=== PATIENT | male | born 1950 | race Caucasian/White ===

== ENCOUNTER 2016-10-24 18:49 | Inpatient (IN) | payer MEDICARE, OTHER ==
[~2016-10-24] VITALS: Ht 167.6 cm; Wt 57.4 kg
[~2016-10-24 18:49] MED LIST: FENT1PAT8 TD; HYDR-3812 PO; IBUP-1780 PO; LISI-556 PO; ONDANSETRON 4 MG/2 ML (SDV) Z0FRAN ONE; TIZA4TAB3 PO
--- NOTE | 2016-10-24 19:04 | ED Fall/Injury ---
General Chief Complaint: Trauma-Non Activation Stated Complaint: FALL/LEG INJ Source: patient, EMS Exam Limitations: no limitations History of Present Illness Time seen by provider: 18:59 Initial Comments patient presents to ER by EMS with a chief complaint of fall while at home. This is gone of his chair to go get a glass of tomato juice and just passed out and his right leg buckled underneath him when he fell he says afterwards he felt a snap in his right lopez where he has had 2 fractures in the past.he is certain that it is broken. He says he has no feeling in his right leg ever since he had a surgery for the fracture that took the nerve so having passed the midshin is numb. He says he did strike his head is not having any pain anywhere right now. He says he's been losing weight recently and he also has not eating very well. He does drink a lot of beer. 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 He says he's had pass out falls before and attributes them to his aneurysm and maybe his alcohol. He is having no chest pain palpitations or history of coronary disease. He does not have any history of seizures. He did not lose continence of bowel or bladder nor bite his tongue. He is not on any blood thinners. He say he is supposed to be on lisinopril but he hasn't taken a few months because his blood pressure has been okay. Allergies and Home Medications Allergies Coded Allergies: No Known Drug Allergies (Unverified , 07/24/15) Home Medications Fentanyl 1 Each Patch.td72, 25 MCG TD Q72H, #10 Prescribed by: KEENAN WILSON on 08/14/15 1141 Hydrocodone/Acetaminophen 1 Each Tablet, 1 TAB PO Q6H PRN for pain, #60 Prescribed by: KEENAN WILSON on 08/14/15 1141 Ibuprofen 800 Mg Tablet, 800 MG PO Q6H PRN for PAIN, #60 Prescribed by: KEENAN WILSON on 08/14/15 1141 Lisinopril 5 Mg Tablet, 5 MG PO DAILY, #30 Prescribed by: KEENAN WILSON on 08/14/15 1141 Tizanidine HCl 4 Mg Tablet, 4 MG PO TID PRN for SPASMS, #30 Prescribed by: KEENAN WILSON on 08/14/15 1141 Constitutional: No chills, No diaphoresis, No weakness, weight loss Eyes: Denies Blindness, Denies Blurred Vision, Denies Drainage Ears, Nose, Mouth, Throat: denies ear pain, denies ear discharge Respiratory: No cough, No dyspnea on exertion, No short of breath, No wheezing Cardiovascular: No chest pain, No palpitations, syncope Gastrointestinal: No abdominal pain, No constipation, No diarrhea, No nausea, No vomiting Genitourinary: No discharge, No dysuria Musculoskeletal: see HPI, No back pain, No joint pain Skin: No pruritus, No rash, other (ecchymosis and abrasion on his lopez and) Past Ubbsfji-Drhiqr-Yflxxt Hx Patient Social History Alcohol Use: Regular Use Recreational Drug Use: No Smoking Status: Never a Smoker Immunizations Up To Date Date of Pneumonia Vaccine: Sep 22, 2014 Surgeries HX Surgeries: Yes Respiratory Hx Respiratory Disorders: No Cardiovascular Hx Cardiac Disorders: No Cardiac Disorders: Hypertension Neurological Hx Neurological Disorders: Yes Reproductive System Hx Reproductive Disorders: No Sexually Transmitted Disease: No Genitourinary Hx Genitourinary Disorders: No Gastrointestinal Hx Gastrointestinal Disorders: No Musculoskeletal Hx Musculoskeletal Disorders: Yes Musculoskeletal Disorders: Back Injury, Fractures, Spasms Endocrine Hx Endocrine Disorders: No HEENT HX ENT Disorders: Yes HEENT Disorders: Cataract Loss of Vision: Denies Hearing Impairment: Denies Cancer Hx Cancer: No Psychosocial Hx Psychiatric Problems: No Integumentary HX Skin/Integumentary Disorder: No Blood Transfusions Hx Blood Disorders: No Adverse Reaction to a Blood Tr: No Family Medical History Family Medial History: Arthritis G8 BROTHER Cataracts 19 FATHER 19 MOTHER Osteoporosis 19 MOTHER Respiratory disorder G8 BROTHER Physical Exam Vital Signs Vital Sign - Last 12Hours 10/24/16 18:50 Temp 98.1 Pulse 105 Resp 20 B/P (MAP) 165/108 Pulse Ox 95 O2 Delivery Room Air Capillary Refill : General Appearance: WD/WN, mild distress HEENT: PERRL/EOMI, TMs normal, pharynx normal Neck: non-tender, full range of motion, supple, normal inspection Cardiovascular: normal peripheral pulses, regular rate, rhythm, no edema Respiratory: lungs clear, normal breath sounds Peripheral Pulses: 2+ Dorsalis Pedis (R), 2+ Left Dors-Pedis (L), 2+ Radial Pulses (R), 2+ Radial Pulses (L) Gastrointestinal: normal bowel sounds, non tender, soft Pelvic: normal external exam Back: normal inspection, no vertebral tenderness Extremities: normal capillary refill, other (right lopez with ecchymosis and tenderness to palpation. He is able to wiggle his toes and has good pulses distal to the bruising and deformity in his right tibia region) Neurologic/Psychiatric: no motor/sensory deficits, alert, oriented x 3 Skin: normal color, warm/dry Progress/Results/Core Measures Results/Orders Lab Results Laboratory Tests Test 10/24/16 21:27 10/24/16 22:05 Range/Units Urine Color YELLOW Urine Clarity CLEAR Urine pH 5 5-9 Urine Specific [place] 1.020 1.016-1.022 Urine Protein NEGATIVE NEGATIVE Urine Glucose (UA) 4+ H NEGATIVE Urine Ketones 4+ H NEGATIVE Urine Nitrite NEGATIVE NEGATIVE Urine Bilirubin NEGATIVE NEGATIVE Urine Urobilinogen NORMAL NORMAL MG/DL Urine Leukocyte Esterase NEGATIVE NEGATIVE Urine RBC (Auto) NEGATIVE NEGATIVE Urine RBC NONE /HPF Urine WBC NONE /HPF Urine Squamous Epithelial Cells RARE /HPF Urine Crystals NONE /LPF Urine Bacteria NONE /HPF Urine Casts NONE /LPF Urine Mucus NEGATIVE /LPF Urine Culture Indicated NO White Blood Count 11.3 H 4.3-11.0 10^3/uL Red Blood Count 4.14 L 4.35-5.85 10^6/uL Hemoglobin 13.4 13.3-17.7 G/DL Hematocrit 39 L 40-54 % Mean Corpuscular Volume 95 80-99 FL Mean Corpuscular Hemoglobin 32 25-34 PG Mean Corpuscular Hemoglobin Concent 34 32-36 G/DL Red Cell Distribution Width 12.8 10.0-14.5 % Platelet Count 226 130-400 10^3/uL Mean Platelet Volume 9.1 7.4-10.4 FL Neutrophils (%) (Auto) 90 H 42-75 % Lymphocytes (%) (Auto) 5 L 12-44 % Monocytes (%) (Auto) 4 0-12 % Eosinophils (%) (Auto) 0 0-10 % Basophils (%) (Auto) 0 0-10 % Neutrophils # (Auto) 10.2 H 1.8-7.8 X 10^3 Lymphocytes # (Auto) 0.6 L 1.0-4.0 X 10^3 Monocytes # (Auto) 0.5 0.0-1.0 X 10^3 Eosinophils # (Auto) 0.0 0.0-0.3 10^3/uL Basophils # (Auto) 0.0 0.0-0.1 10^3/uL Neutrophils % (Manual) 79 % Lymphocytes % (Manual) 5 % Monocytes % (Manual) 4 % Eosinophils % (Manual) 0 % Basophils % (Manual) 0 % Band Neutrophils 12 % Blood Morphology Comment NORMAL Sodium Level 135 135-145 MMOL/L Potassium Level 3.3 L 3.6-5.0 MMOL/L Chloride Level 98 98-107 MMOL/L Carbon Dioxide Level 17 L 21-32 MMOL/L Anion Gap 20 H 5-14 MMOL/L Blood Urea Nitrogen 4 L 7-18 MG/DL Creatinine 0.75 0.60-1.30 MG/DL Estimat Glomerular Filtration Rate > 60 BUN/Creatinine Ratio 5 Glucose Level 314 H 70-105 MG/DL Calcium Level 7.6 L 8.5-10.1 MG/DL Magnesium Level 2.2 1.8-2.4 MG/DL Total Bilirubin 0.8 0.1-1.0 MG/DL Aspartate Amino Transf (AST/SGOT) 108 H 5-34 U/L Alanine Aminotransferase (ALT/SGPT) 60 H 0-55 U/L Alkaline Phosphatase 73 40-136 U/L Total Protein 6.7 6.4-8.2 GM/DL Albumin 3.5 3.2-4.5 GM/DL Serum Alcohol 211 H <10 MG/DL My Orders Orders - ANKITA TONY Ondansetron Injection (Zofran Injectio (10/24/16 18:48) Ct Head/Cervical Spine Wo (10/24/16 19:04) Alcohol (10/24/16 19:04) Cbc With Automated Diff (10/24/16 19:04) Comprehensive Metabolic Panel (10/24/16 19:04) Magnesium (10/24/16 19:04) Troponin I (10/24/16 19:04) Ua Culture If Indicated (10/24/16 19:04) Chest 1 View, Ap/Pa Only (10/24/16 19:04) Tibia/Fibula, Right, 2 Views (10/24/16 19:04) Foot, Right, 3 View (10/24/16 19:04) Ankle, Right, 3 Views (10/24/16 19:04) Saline Lock/Iv-Start (10/24/16 19:04) Thiamine Injection (Vitamin B-1 Injectio (10/25/16 09:00) Ondansetron Injection (Zofran Injectio (10/24/16 19:15) Continuous Ekg Monitoring (10/24/16 19:07) Ekg Tracing (10/24/16 19:07) Thiamine Injection (Vitamin B-1 Injectio (10/24/16 19:28) Magnesium Sulfate Inj (Magnesium Sulfate (10/24/16 19:30) Folic Acid Syr (Ed) (Folic Acid Syr (Ed) (10/24/16 19:30) Thiamine Injection (Vitamin B-1 Injectio (10/24/16 19:31) D5 1/2 Ns W/Kcl 20 Meq/L (Dextrose 5%/0. (10/24/16 19:32) Vitamin Multi Injection (Mvi 12 Injectio (10/24/16 19:32) Ondansetron Injection (Zofran Injectio (10/24/16 22:00) Manual Differential (10/24/16 22:05) Medications Given in ED Current Medications Medications Dose Ordered Sig/Jes Route Start Time Stop Time Status Last Admin Dose Admin Folic Acid 1 mg STK-MED ONCE .ROUTE 10/24/16 19:30 10/24/16 19:38 DC 10/24/16 20:11 1 MG Magnesium Sulfate 1 gm STK-MED ONCE .ROUTE 10/24/16 19:30 10/24/16 19:37 DC 10/24/16 20:08 1 GM Multivitamins 10 ml STK-MED ONCE IV 10/24/16 19:32 10/24/16 19:40 DC 10/24/16 20:11 10 ML Ondansetron HCl 4 mg ONCE ONCE IVP 10/24/16 19:15 10/24/16 19:16 DC 10/24/16 18:54 4 MG Ondansetron HCl 4 mg ONCE ONCE IVP 10/24/16 22:00 10/24/16 22:01 DC 10/24/16 22:16 4 MG Potassium Chloride/Dextrose/ Sod Cl 1,000 ml @ ud STK-MED ONCE IV 10/24/16 19:32 10/24/16 19:40 DC 10/24/16 20:11 1,000 MLS/HR Thiamine HCl 200 mg STK-MED ONCE .ROUTE 10/24/16 19:31 10/24/16 19:39 DC 10/24/16 20:10 100 MG Vital Signs/I&O Vital Sign - Last 12Hours 10/24/16 18:50 Temp 98.1 Pulse 105 Resp 20 B/P (MAP) 165/108 Pulse Ox 95 O2 Delivery Room Air ECG Initial ECG Impression Date: Oct 24, 2016 Initial ECG Impression Time: 19:16 Initial ECG Rate: 97 Initial ECG Rhythm: Normal Sinus Initial ECG Intervals: QT (478) Initial ECG Impression: Nonspecific Changes Initial ECG Comparisson: No Previous ECG Available Comment No ST wave elevation or depression Diagnostic Imaging Diagonstic Imaging: Xray Plain Films/CT/US/NM/MRI: ankle (foot and tibia-fibula) Comments [facility]IA [facility], [place], [place] NAME: RENATAJOSE ANGEL D [facility] REC#: [id number] PT STATUS: REG ER : 1950 PHYSICIAN: ANKITA TONY MD ADMIT DATE: 10/24/16/ER Draft Date of Exam:10/24/16 ANKLE, RIGHT, 3 VIEWS INDICATION: Fall. COMPARISON: None FINDINGS: 3 radiographic views of the right ankle were obtained and demonstrate acute mildly displaced comminuted fracture of the distal tibial shaft. There is no appreciable extension into the tibiotalar joint space. Tibiotalar joint space is maintained. Distal fibula is intact. The talus, calcaneus, and remaining visualized portions of the right foot are also intact. Note is made of calcified arteriosclerosis. IMPRESSION: 1. Acute fracture of the distal tibia as described above. Dictated on workstation # [id number] Dict: 10/24/162004 Trans: 10/24/162008 BRITTANI [id number] Interpreted by: JIMMIE COOMBS Electronically signed by: [facility] [place] [place] NAME: RENATAJOES ANGEL [facility] REC#: [id number] PT STATUS: REG ER : 1950 PHYSICIAN: ANKITA TONY MD ADMIT DATE: 10/24/16/ER Draft Date of Exam:10/24/16 FOOT, RIGHT, 3 VIEW INDICATION: Fall. COMPARISON: Ankle exam from same day. EXAMINATION: Three radiographic views of the right foot were obtained. Distal tibia fracture is partially included on this exam. Please note, this is better visualized on separately performed ankle series. Otherwise, right foot is intact. No acute fractures or dislocations of the right foot are identified. Joint spaces are maintained. Soft tissue structures are unremarkable. Note is made of diminished bone mineral density. There is also calcified arterial sclerosis. IMPRESSION: 1. No acute fracture or dislocation of the right foot. 2. Partially visualized distal tibia fracture. 3. Decreased bone mineral density concerning for underlying osteopenia/osteoporosis. Correlation with DEXA scan is recommended. Dictated on workstation # [id number] Dict: 10/24/162016 Trans: 10/24/162020 [facility] [phone] Interpreted by: JIMMIE COOMBS Electronically signed by: [facility] [place] [place] NAME: JOSE ANGEL YANEZ Nirali [facility] REC#: [id number] PT STATUS: REG ER : 1950 PHYSICIAN: ANKITA TONY MD ADMIT DATE: 10/24/16/ER Draft Date of Exam:10/24/16 TIBIA/FIBULA, RIGHT, 2 VIEWS INDICATION: Fall. COMPARISON: Ankle radiograph from same day. EXAMINATION: Four radiographic views of the right tibia and fibula were obtained. FINDINGS: There is mildly displaced acute oblique oriented fracture of the proximal fibula. Also identified is more heavily comminuted and displaced fracture of the distal tibial shaft. Included portions of the right knee and ankle joints are maintained. There is no evidence of intra-articular extension. Note is made of calcified arterial sclerosis. IMPRESSION: Acute fractures of the right tibia and fibula, as described above. Dictated on workstation # [id number] Dict: 10/24/162018 Trans: 10/24/162021 [facility] [id number] Interpreted by: JIMMIE COOMBS Electronically signed by: Reviewed: Reviewed by Nm Diagonstic Imaging: Xray Plain Films/CT/US/NM/MRI: chest Comments [facility]IA [place], [place] NAME: JOSE ANGEL YANEZ [facility] REC#: [id number] PT STATUS: REG ER : 1950 PHYSICIAN: ANKITA TONY MD ADMIT DATE: 10/24/16/ER Draft Date of Exam:10/24/16 CHEST 1 VIEW, AP/PA ONLY INDICATION: Fall COMPARISON: None FINDINGS: Single frontal view of the chest demonstrates normal heart size and pulmonary vascularity. The lungs are well aerated and clear. No large pleural effusion or pneumothorax is seen. The visualized osseous structures show no acute abnormalities. IMPRESSION: 1. No acute cardiopulmonary process. Dictated on workstation # [id number] Dict: 10/24/162017 Trans: 10/24/162020 [facility]ITT[facility] [phone] Interpreted by: JIMMIE COOMBS Electronically signed by: Reviewed: Reviewed by Nm Diagonstic Imaging: CT Plain Films/CT/US/NM/MRI: c-spine, head Comments [facility] [place], [place] NAME: JOSE ANGEL YANEZ [facility] REC#: [id number] PT STATUS: REG ER : 1950 PHYSICIAN: ANKITA TONY MD ADMIT DATE: 10/24/16/ER Draft Date of Exam:10/24/16 CT HEAD/CERVICAL SPINE WO PROCEDURE: CT head and CT cervical spine without contrast. TECHNIQUE: Multiple contiguous axial images were obtained through the brain and cervical spine without the use of intravenous contrast. Sagittal and coronal reformations through the cervical spine were then performed. INDICATION: Syncope. Fall. Trauma to head. COMPARISON: None. FINDINGS: CT HEAD: The ventricles and cortical sulci are diffusely prominent, compatible with age-related volume loss. There are confluent areas of abnormal, low attenuation in the periventricular white matter. This is consistent with small vessel ischemic changes; age-indeterminate. There is no prior study available for comparison. There is no midline shift or mass-effect. No acute intra-axial hemorrhage is seen. There are no abnormal areas of increased or decreased density to suggest acute hemorrhage or edema. No extra-axial masses or collections are present. The bony calvarium is intact. The visualized paranasal sinuses are unremarkable. The mastoid air cells are clear. CT CERVICAL SPINE: There is mild straightening of normal lordotic curvature of the cervical spine. This, however, may be related to positioning and/or spasm, as well as degenerative changes. There is no significant anterolisthesis or retrolisthesis. There is no evidence of jumped facets. Vertebral body heights are maintained. There is no evidence of acute fracture. No bony fragments are seen within the spinal canal. There are moderate multilevel degenerative changes, greatest involving the lower cervical spine. There is consistent intervertebral disc height loss with bridging anterior and posterior disc osteophyte complex formations, as well as multilevel facet arthropathy. Prevertebral and paravertebral soft tissue structures are unremarkable. Note is made of significant calcified carotid atherosclerosis. Lung apices are not significantly included on this exam IMPRESSION: 1. No acute intracranial abnormality. No CT evidence of mass, acute infarct or intracranial hemorrhage. 2. Small vessel ischemic changes in the periventricular and subcortical white matter; likely chronic. 3. No CT evidence of acute fracture or dislocation of the cervical spine. 4. Moderate multilevel degenerative changes of the cervical spine. Dictated on workstation # [id number] Dict: 10/24/161936 Trans: 10/24/161942 [facility] [id number] Interpreted by: JIMMIE COOMBS Electronically signed by: Reviewed: Reviewed by Me Consults Consults : Consulting Physician: TEJINDER LEIVA MD Consults Notes called [address] Leiva called back and he reviewed the imaging and wants to put the patient and feels that he may need a plate more than just a pin tomorrow. Nothing by mouth at midnight. Pain and fluids. He'll see the patient in the morning. Departure Communication Time/Spoke to Admitting Phy: 22:40 Communication bobo; discussed the case with her and she feels that there would be best put him in the ICU on alcohol withdrawal protocol. Time/Spoke to Consulting Physi: 22:30 Communication/Consulting Nothing by mouth at midnight keep some fluids pain medicine and nausea medicine going and he'll plan doing surgery tomorrow. Impression Impression: Primary Impression: Fibula fracture Qualified Codes: S82.831A - Other fracture of upper and lower end of right fibula, initial encounter for closed fracture Additional Impressions: Tibia fracture Qualified Codes: S82.301A - Unspecified fracture of lower end of right tibia, initial encounter for closed fracture Fall Qualified Codes: W19.XXXA - Unspecified fall, initial encounter Laceration of scalp Qualified Codes: S01.01XA - Laceration without foreign body of scalp, initial encounter Alcohol abuse Disposition: ADMITTED INPATIENT Condition: Stable Admissions Decision to Admit Reason: Admit from ER (Trauma) Decision to Admit/Date: Oct 24, 2016 Time/Decision to Admit Time: 22:50 Departure-Patient Inst. Referrals: NO,LOCAL PHYSICIAN (PCP) Primary Care Physician Copy Copies To 1: TEJINDER LEIVA MD, TITUS J Oct 24, 2016 19:04
[2016-10-24] MEDS ORDERED: ONDANSETRON 4 MG/2 ML (SDV) Z0FRAN IVP ONE ×2 (19:15→22:00)
[2016-10-24] MEDS ORDERED: THIAMINE INJECTION 100 MG, FOLIC ACID INJECTION 1 MG, VITAMIN MULTI INJECTION 10 ML, MA... IV ONE ×5 (19:28)
[2016-10-24] MEDS ORDERED: MAGNESIUM SULFATE 1 GM/2 ML VIAL ONE (19:30)
[2016-10-24] MEDS ORDERED: FOLIC ACID 1 MG/0.2 ML SYR (ED) ONE (19:30)
[2016-10-24] MEDS ORDERED: THIAMINE 100 MG/ML 2 ML (VITAMIN B-1) VIAL ONE (19:31)
[2016-10-24] MEDS ORDERED: D5 1/2 NS W/KCL 20 MEQ/L 1,000 ML IV ONE (19:32)
[2016-10-24] MEDS ORDERED: VITAMIN MULTI- 12 INJECTION 10 ML VIAL IV ONE (19:32)
--- NOTE | 2016-10-24 19:44 | Diagnostic Imaging Report ---
PROCEDURE: CT head and CT cervical spine without contrast. TECHNIQUE: Multiple contiguous axial images were obtained through the brain and cervical spine without the use of intravenous contrast. Sagittal and coronal reformations through the cervical spine were then performed. INDICATION: Syncope. Fall. Trauma to head. COMPARISON: None. FINDINGS: CT HEAD: The ventricles and cortical sulci are diffusely prominent, compatible with age-related volume loss. There are confluent areas of abnormal, low attenuation in the periventricular white matter. This is consistent with small vessel ischemic changes; age-indeterminate. There is no prior study available for comparison. There is no midline shift or mass-effect. No acute intra-axial hemorrhage is seen. There are no abnormal areas of increased or decreased density to suggest acute hemorrhage or edema. No extra-axial masses or collections are present. The bony calvarium is intact. The visualized paranasal sinuses are unremarkable. The mastoid air cells are clear. CT CERVICAL SPINE: There is mild straightening of normal lordotic curvature of the cervical spine. This, however, may be related to positioning and/or spasm, as well as degenerative changes. There is no significant anterolisthesis or retrolisthesis. There is no evidence of jumped facets. Vertebral body heights are maintained. There is no evidence of acute fracture. No bony fragments are seen within the spinal canal. There are moderate multilevel degenerative changes, greatest involving the lower cervical spine. There is consistent intervertebral disc height loss with bridging anterior and posterior disc osteophyte complex formations, as well as multilevel facet arthropathy. Prevertebral and paravertebral soft tissue structures are unremarkable. Note is made of significant calcified carotid atherosclerosis. Lung apices are not significantly included on this exam IMPRESSION: 1. No acute intracranial abnormality. No CT evidence of mass, acute infarct or intracranial hemorrhage. 2. Small vessel ischemic changes in the periventricular and subcortical white matter; likely chronic. 3. No CT evidence of acute fracture or dislocation of the cervical spine. 4. Moderate multilevel degenerative changes of the cervical spine. Dictated by: Dictated on workstation # [id number]
--- NOTE | 2016-10-24 20:09 | Diagnostic Imaging Report ---
INDICATION: Fall. COMPARISON: None FINDINGS: 3 radiographic views of the right ankle were obtained and demonstrate acute mildly displaced comminuted fracture of the distal tibial shaft. There is no appreciable extension into the tibiotalar joint space. Tibiotalar joint space is maintained. Distal fibula is intact. The talus, calcaneus, and remaining visualized portions of the right foot are also intact. Note is made of calcified arteriosclerosis. IMPRESSION: 1. Acute fracture of the distal tibia as described above. Dictated by: Dictated on workstation # [id number]
--- NOTE | 2016-10-24 20:21 | Diagnostic Imaging Report ---
INDICATION: Fall. COMPARISON: Ankle exam from same day. EXAMINATION: Three radiographic views of the right foot were obtained. Distal tibia fracture is partially included on this exam. Please note, this is better visualized on separately performed ankle series. Otherwise, right foot is intact. No acute fractures or dislocations of the right foot are identified. Joint spaces are maintained. Soft tissue structures are unremarkable. Note is made of diminished bone mineral density. There is also calcified arterial sclerosis. IMPRESSION: 1. No acute fracture or dislocation of the right foot. 2. Partially visualized distal tibia fracture. 3. Decreased bone mineral density concerning for underlying osteopenia/osteoporosis. Correlation with DEXA scan is recommended. Dictated by: Dictated on workstation # [id number]
--- NOTE | 2016-10-24 20:21 | Diagnostic Imaging Report ---
INDICATION: Fall COMPARISON: None FINDINGS: Single frontal view of the chest demonstrates normal heart size and pulmonary vascularity. The lungs are well aerated and clear. No large pleural effusion or pneumothorax is seen. The visualized osseous structures show no acute abnormalities. IMPRESSION: 1. No acute cardiopulmonary process. Dictated by: Dictated on workstation # [id number]
--- NOTE | 2016-10-24 20:22 | Diagnostic Imaging Report ---
INDICATION: Fall. COMPARISON: Ankle radiograph from same day. EXAMINATION: Four radiographic views of the right tibia and fibula were obtained. FINDINGS: There is mildly displaced acute oblique oriented fracture of the proximal fibula. Also identified is more heavily comminuted and displaced fracture of the distal tibial shaft. Included portions of the right knee and ankle joints are maintained. There is no evidence of intra-articular extension. Note is made of calcified arterial sclerosis. IMPRESSION: Acute fractures of the right tibia and fibula, as described above. Dictated by: Dictated on workstation # [id number]
[2016-10-24 21:38] LABS: BILIRUBIN,URINE NEGATIVE (NEGATIVE); KETONES,URINE 4+ (NEGATIVE); LEUKOCYTE ESTERASE ,URINE NEGATIVE (NEGATIVE); NITRITE,URINE NEGATIVE (NEGATIVE); PH,URINE 5 (5-9); PROTEIN,URINE NEGATIVE (NEGATIVE); UROBILINOGEN,URINE NORMAL (NORMAL)
[2016-10-24 21:48] LABS: SQUAMOUS EPITHELIAL CELL,UR RARE /HPF
[2016-10-24 22:16] LABS: BASOPHILS % (AUTO) 0 % (0-10); EOSINOPHILS % (AUTO) 0 % (0-10); LYMPHOCYTES # (AUTO) 0.6 X 10^3 (1.0-4.0); LYMPHOCYTES % (AUTO) 5 % (12-44); MEAN CORPUSCULAR HEMOGLOBIN 32 PG (25-34); MEAN CORPUSCULAR HGB CONC 34 G/DL (32-36); MEAN CORPUSCULAR VOLUME 95 FL (80-99); MEAN PLATELET VOLUME 9.1 FL (7.4-10.4); MONOCYTES # (AUTO) 0.5 X 10^3 (0.0-1.0); MONOCYTES % (AUTO) 4 % (0-12); NEUTROPHILS # (AUTO) 10.2 X 10^3 (1.8-7.8); NEUTROPHILS % (AUTO) 90 % (42-75); PLATELET COUNT 226 10^3/uL (130-400); RED BLOOD COUNT 4.14 10^6/uL (4.35-5.85); RED CELL DISTRIBUTION WIDTH 12.8 % (10.0-14.5); WHITE BLOOD COUNT 11.3 10^3/uL (4.3-11.0)
[2016-10-24 22:32] LABS: ALANINE AMINOTRANSFERASE 60 U/L (0-55); ALBUMIN 3.5 GM/DL (3.2-4.5); ALCOHOL 211 MG/DL (<10); ANION GAP 20 MMOL/L (5-14); ASPARTATE AMINO TRANSFERASE 108 U/L (5-34); BILIRUBIN,TOTAL 0.8 MG/DL (0.1-1.0); BLOOD UREA NITROGEN 4 MG/DL (7-18); BUN/CREATININE RATIO 5; CALCIUM 7.6 MG/DL (8.5-10.1); CARBON DIOXIDE 17 MMOL/L (21-32); CHLORIDE 98 MMOL/L (98-107); CREATININE SERUM 0.75 MG/DL (0.60-1.30); GFR ESTIMATED > 60; GLUCOSE 314 MG/DL (70-105); MAGNESIUM 2.2 MG/DL (1.8-2.4); POTASSIUM 3.3 MMOL/L (3.6-5.0); SODIUM 135 MMOL/L (135-145); TOTAL PROTEIN 6.7 GM/DL (6.4-8.2)
[2016-10-24 22:33] LABS: BAND NEUTROPHILS 12 %; BASOPHILS % (MANUAL) 0 %; EOSINOPHILS % (MANUAL) 0 %; LYMPHOCYTES % (MANUAL) 5 %; NEUTROPHILS % (MANUAL) 79 %
[2016-10-24 22:36] LABS: TROPONIN I < 0.30 NG/ML (<0.30)
[2016-10-25] VITALS (26 sets, daily range): BP systolic 122–169; BP diastolic 71–99
[2016-10-25] MEDS ORDERED: NS W/KCL 20 MEQ/L 1,000 ML IV ONE (00:14)
[2016-10-25] MEDS ORDERED: NS W/KCL 20 MEQ/L 1,000 ML IV SCH (00:30)
[2016-10-25] MEDS: D5 1/2 NS W/KCL 20 MEQ/L 1,000 ML IV SCH ×4 (01:09→21:09)
[2016-10-25] MEDS ORDERED: 1/2 NS IV SOLUTION 1,000 ML IV PRN (01:09)
[2016-10-25] MEDS ORDERED: LORazepam INJ 2 MG/ML (ATIVAN) VIAL IV PRN (01:15)
[2016-10-25] MEDS ORDERED: fentaNYL INJECTION 100 MCG/2 ML AMP IV PRN (01:15)
[2016-10-25] MEDS ORDERED: ONDANSETRON 4 MG (ZOFRAN) ORAL DISSOLVE TAB SL PRN (01:15)
[2016-10-25] MEDS ORDERED: LORazepam 1 MG (ATIVAN) TAB PO PRN (01:15)
[2016-10-25] MEDS ORDERED: ONDANSETRON 4 MG/2 ML (SDV) Z0FRAN IV PRN (01:15)
[2016-10-25] MEDS ORDERED: ANTACID SUSP 30 ML UDC (MYLANTA) PO PRN (01:15)
[2016-10-25] MEDS ORDERED: LORazepam INJ 2 MG/ML (ATIVAN) VIAL IM/IV PRN (01:15)
[2016-10-25] MEDS ORDERED: D5 1/2 NS 1000 ML IV SOLUTION 1,000 ML IV PRN (01:15)
[2016-10-25] MEDS ORDERED: SENNA W/DOCUSATE (SENOKOT S) TABLET PO PRN (01:15)
[2016-10-25] MEDS: ONDANSETRON 4 MG/2 ML (SDV) Z0FRAN IV PRN ×4 (04:52→21:06)
[2016-10-25 05:46] LABS: BASOPHILS % (AUTO) 0 % (0-10); EOSINOPHILS % (AUTO) 0 % (0-10); LYMPHOCYTES % (AUTO) 12 % (12-44); MEAN CORPUSCULAR HEMOGLOBIN 33 PG (25-34); MEAN CORPUSCULAR HGB CONC 34 G/DL (32-36); MEAN CORPUSCULAR VOLUME 95 FL (80-99); MEAN PLATELET VOLUME 9.3 FL (7.4-10.4); MONOCYTES # (AUTO) 0.6 X 10^3 (0.0-1.0); MONOCYTES % (AUTO) 8 % (0-12); NEUTROPHILS # (AUTO) 6.3 X 10^3 (1.8-7.8); NEUTROPHILS % (AUTO) 80 % (42-75); PLATELET COUNT 230 10^3/uL (130-400); RED BLOOD COUNT 3.84 10^6/uL (4.35-5.85); RED CELL DISTRIBUTION WIDTH 12.7 % (10.0-14.5); WHITE BLOOD COUNT 7.9 10^3/uL (4.3-11.0)
[2016-10-25 05:58] LABS: ALANINE AMINOTRANSFERASE 54 U/L (0-55); ALBUMIN 3.4 GM/DL (3.2-4.5); ANION GAP 17 MMOL/L (5-14); ASPARTATE AMINO TRANSFERASE 85 U/L (5-34); BLOOD UREA NITROGEN 4 MG/DL (7-18); BUN/CREATININE RATIO 6; CALCIUM 7.6 MG/DL (8.5-10.1); CARBON DIOXIDE 21 MMOL/L (21-32); CHLORIDE 101 MMOL/L (98-107); CREATININE SERUM 0.67 MG/DL (0.60-1.30); GFR ESTIMATED > 60; GLUCOSE 108 MG/DL (70-105); MAGNESIUM 1.9 MG/DL (1.8-2.4); PHOSPHORUS 2.9 MG/DL (2.3-4.7); POTASSIUM 3.5 MMOL/L (3.6-5.0); SODIUM 139 MMOL/L (135-145); TOTAL PROTEIN 6.4 GM/DL (6.4-8.2)
[2016-10-25] MEDS: MAGNESIUM 1 GM/100 ML IVPB 100 ML IV SCH (06:00)
[2016-10-25] MEDS: KCL 20 MEQ TAB (K-DUR) PO SCH (06:00)
[2016-10-25] MEDS: POTASSIUM CL 10MEQ/50ML IVPB 50 ML IV SCH ×3 (06:00→08:39)
[2016-10-25] MEDS: MULTIVIT W/MINERALS TAB (THERAGRAN M) PO SCH (07:00)
[2016-10-25] MEDS: THIAMINE 100 MG (VITAMIN B-1) TAB PO SCH (07:00)
--- NOTE | 2016-10-25 07:02 | Diagnostic Imaging Report ---
INDICATION: Short of breath EXAMINATION: Chest dated 10/25/2016 COMPARISON: 10/24/2016 FINDINGS: Heart is stable. Pulmonary vasculature unchanged. The lungs appear clear other than mild chronic changes. No effusions or infiltrates. No pneumothorax. IMPRESSION: 1. Chronic change noted with no superimposed acute process. Dictated by: Dictated on workstation # [id number]
--- NOTE | 2016-10-25 07:32 | Pulmonary Consultation ---
History of Present Illness History of Present Illness Date of Consultation 10/25/16 07:27 Time Seen by Provider: 07:27 Date of Admission History of Present Illness 66yo presented to ED after falling at home hitting his head and hurting his right leg. He was found to have serum ETOH of 211. He was also found to have right forehead laceration and right tib/fib fracture. No MS change and no loss of consciousness. Pt has recently had decreased appetite with weight loss. Pt drinks beer daily. NO hx of seizures. I am consulted for ICU management. Allergies and Home Medications Allergies Coded Allergies: No Known Drug Allergies (Unverified , 07/24/15) Home Medications Aspirin 81 Mg Tab.chew, 81 MG PO DAILY for 30 Days Prescribed by: MONICA GOMEZ on 10/27/16 1125 Past Alrwzsm-Vepfiz-Pesklg Hx Patient Social History Alcohol Use: Regular Use Recreational Drug Use: No Smoking Status: Never a Smoker 2nd Hand Smoke Exposure: No Recent Foreign Travel: No Contact w/Someone Who Travel: No Recent Infectious Disease Expo: No Recent Hopitalizations: No Physical Abuse Screen: No Sexual Abuse: No Immunizations Up To Date Date of Pneumonia Vaccine: Sep 22, 2014 Seasonal Allergies Seasonal Allergies: No Surgeries HX Surgeries: Yes Respiratory Hx Respiratory Disorders: No Cardiovascular Hx Cardiac Disorders: No Cardiac Disorders: Hypertension Neurological Hx Neurological Disorders: Yes Reproductive System Hx Reproductive Disorders: No Sexually Transmitted Disease: No Genitourinary Hx Genitourinary Disorders: No Gastrointestinal Hx Gastrointestinal Disorders: No Musculoskeletal Hx Musculoskeletal Disorders: Yes Musculoskeletal Disorders: Back Injury, Chronic Back Pain, Fractures, Spasms Endocrine Hx Endocrine Disorders: No HEENT HX ENT Disorders: Yes HEENT Disorders: Cataract Loss of Vision: Denies Hearing Impairment: Denies Cancer Hx Cancer: No Psychosocial Hx Psychiatric Problems: No Integumentary HX Skin/Integumentary Disorder: No Blood Transfusions Hx Blood Disorders: No Adverse Reaction to a Blood Tr: No Family Medical History Family Medial History: Arthritis G8 BROTHER Cataracts 19 FATHER 19 MOTHER Osteoporosis 19 MOTHER Respiratory disorder G8 BROTHER Review of Systems Time Seen by Provider: 14:16 Constitutional: Weakness, Malaise, No: Fever, Chills, Sweats, Other Eyes: No: Pain, Vision change, Conjunctivae inflammation, Eyelid inflammation, Other, Redness ENT: No: Ear pain, Ear discharge, Nose pain, Nose discharge, Nose congestion, Mouth pain, Mouth swelling, Throat pain, Throat swelling, Other Respiratory: No: Cough, Dry, Shortness of breath, SOB with excertion, Wheezing , Hemoptysis, Pleuritic Pain, Sputum, Wheezing, Other Cardiovascular: No: Chest Pain, Palpitations, Orthopnea, Paroxysmal Noc. Dyspnea, Edema, Lt Headedness, Other Neurological: Weakness, Incoordination, Confusion Exam Exam Vital Signs Date Time Temp Pulse Resp B/P (MAP) Pulse Ox O2 Delivery O2 Flow Rate FiO2 10/25/16 06:16 81 11 140/78 96 Room Air 10/25/16 05:22 88 16 140/83 94 Room Air 10/25/16 04:33 99.2 88 15 145/85 97 Room Air 10/25/16 04:00 Room Air 10/25/16 03:00 90 16 138/81 94 Room Air 10/25/16 02:00 88 16 122/71 94 Room Air 10/25/16 01:30 87 14 93 Room Air 10/25/16 01:15 87 14 122/75 92 Room Air 10/25/16 01:00 85 12 134/78 93 Room Air 10/25/16 01:00 92 10/25/16 00:45 88 16 136/78 93 Room Air 10/25/16 00:30 92 17 133/82 95 Room Air 10/25/16 00:17 92 10/25/16 00:15 99.0 93 19 142/83 94 Room Air 10/25/16 00:14 94 Room Air 10/24/16 23:47 98.1 105 20 95 Room Air 10/24/16 18:50 98.1 105 20 165/108 95 Room Air I & O 10/25/16 07:00 Intake Total 1400 ml Output Total 550 ml Balance 850 ml General Appearance: No Apparent Distress, Anxious HEENT: PERRL/EOMI, Normal ENT Inspection, Pharynx Normal Neck: Full Range of Motion, Normal Inspection, Non Tender, Supple Respiratory: Chest Non Tender, Lungs Clear, Normal Breath Sounds, No Accessory Muscle Use, No Respiratory Distress Cardiovascular: Regular Rate, Rhythm, No JVD, Normal Peripheral Pulses Capillary Refill: Less Than 3 Seconds Peripheral Pulses: 2+ Dorsalis Pedis (R), 2+ Left Dors-Pedis (L), 2+ Radial Pulses (R), 2+ Radial Pulses (L) Gastrointestinal: normal bowel sounds, non tender, soft Extremity: Normal Capillary Refill, Normal Inspection Neurologic/Psychiatric: Alert, Oriented x3 Skin: Normal Color, Warm/Dry Lymphatic: No Adenopathy Results Lab Laboratory Tests 10/24/16 22:05 10/25/16 05:10 Assessment/Plan Assessment/Plan S/P fall with tib/fib fracture -ortho consulted plan is for surgery today ETOH dependance -monitor for withdrawal -ETOH protocol started -Fall precautions Metabolic anion gap metabolic acidosis probably from ETOH -PT denies drinking rubbing alcohol, antifreeze, and illicit drugs ect -Check Lactic acid -Check UDS Elevated liver enzymes -Probably secondary to ETOH -Check Hep panel 255 Clinical Quality Measures DVT/VTE Risk/Contraindication: Risk Factor Score Per Nursin RFS Level Per Nursing on Admit: 4+=Very High BALBIR SPRAGUE DO Oct 25, 2016 07:32
[2016-10-25] MEDS: FOLIC ACID 1 MG TAB PO SCH (08:41)
[2016-10-25] MEDS: MAGNESIUM OXIDE (MAG-OX)400 MG TAB PO SCH ×2 (08:41→23:38)
[2016-10-25] MEDS ORDERED: THIAMINE INJECTION 100 MG, FOLIC ACID INJECTION 1 MG, VITAMIN MULTI INJECTION 10 ML, MA... IV SCH ×5 (09:00)
--- NOTE | 2016-10-25 09:55 | History & Physicial ---
History of Present Illness History of Present Illness Reason for visit/HPI Jonas is a 66 year old male who presented to the ED after a fall at home yesterday. The patient tells me that he was putting a drink into the refrigerator when he turned and his leg collapsed. The patient was transported to the [facility] ED, Radiographs were ordered, and Dr. Leiva was consulted for orthopedic terminal operations supervisor service. Upon review of radiographs, Mr. Jones was found to have Right Tib/fib fracture. The patient was admitted and scheduled for ORIF Right tibia and fibula. The patient also sustained a right forehead laceration, but denies any further pain or problems. Date of Admission Oct 24, 2016 at 22:50 Date Seen by Provider: Oct 25, 2016 Time Seen by Provider: 09:55 I consulted on this patient on 10/25/16 09:50 Attending Physician Albertina Camejo DO Admitting Physician Sofía,Local Physician Consult TEJINDER LEIVA MD Allergies and Home Medications Allergies Coded Allergies: No Known Drug Allergies (Unverified , 07/24/15) Home Medications No Active Prescriptions or Reported Meds Past Vvhdpsj-Pzgqoy-Jhnbme Hx Patient Social History Alcohol Use: Regular Use Recreational Drug Use: No Smoking Status: Never a Smoker Type Used: Smokeless Tobacco 2nd Hand Smoke Exposure: No Physical Abuse Screen: No Sexual Abuse: No Recent Foreign Travel: No Contact w/other who traveled: No Recent Hopitalizations: No Recent Infectious Disease Expo: No Immunizations Up To Date Date of Pneumonia Vaccine: Sep 22, 2014 Seasonal Allergies Seasonal Allergies: No Surgeries HX Surgeries: Yes Respiratory Hx Respiratory Disorders: No Cardiovascular Hx Cardiovascular Disorders: No Cardiac Disorders: Hypertension Neurological Hx Neurological Disorders: Yes Reproductive System Hx Reproductive Disorders: No Sexually Transmitted Disease: No Genitourinary Hx Genitourinary Disorders: No Gastrointestinal Hx Gastrointestinal Disorders: No Musculoskeletal Hx Musculoskeletal Disorders: Yes Musculoskeletal Disorders: Back Injury, Chronic Back Pain, Fractures, Spasms Endocrine Hx Endocrine Disorders: No HEENT HX ENT Disorders: Yes HEENT Disorders: Cataract Loss of Vision: Denies Hearing Impairment: Denies Cancer Hx Cancer: No Psychosocial Hx Psychiatric Problems: No Integumentary HX Skin/Integumentary Disorder: No Blood Transfusions Hx Blood Disorders: No Adverse Reaction to a Blood Tr: No Family Medical History Family Hx: Arthritis G8 BROTHER Cataracts 19 FATHER 19 MOTHER Osteoporosis 19 MOTHER Respiratory disorder G8 BROTHER Constitutional: No no symptoms reported, No see HPI, No chills, No diaphoresis , No dizziness, No fever, No malaise, No weakness, No weight gain, No weight loss, No other EENTM: other, No blurred vision, No dental problems, No double vision, No ear discharge, No ear pain, No epistaxis, No eye pain, No hearing loss, No hoarseness, No mouth pain, No mouth swelling, No no symptoms reported, No nose congestion, No nose pain, No see HPI, No tearing, No throat pain, No throat swelling, No vision loss Respiratory: No no symptoms reported, No see HPI, No cough, No dyspnea on exertion, No hemoptysis, No orthopnea, No phlegm, No short of breath, No stridor , No wheezing, No other Cardiovascular: No no symptoms reported, No see HPI, No chest pain, No edema, No Hx of Intervention, No palpitations, No syncope, No vascular heart diseas, No other Gastrointestinal: No RUQ, No LUQ, No RLQ, No LLQ, No no symptoms reported, No see HPI, No abdominal pain, No constipation, No diarrhea, No dysphagia, No hematemesis, No heartburn, No jaundice, No loss of appetite, No melena, No nausea, No vomiting, No other Musculoskeletal: back pain, other (Right LE pain) Skin: other (right forehead laceration) Psychiatric/Neurological: Denies No Symptoms Reported, Denies See HPI, Denies Anxiety, Denies Depressed, Denies Emotional Problems, Denies Headache, Denies Numbness, Denies Paresthesia, Denies Pre-Existing Deficit, Denies Seizure, Denies Tingling, Denies Tremors, Denies Weakness, Denies Other Physical Exam Vital Signs Vital Sign - Last 12Hours 10/24/16 18:50 Temp 98.1 Pulse 105 Resp 20 B/P (MAP) 165/108 Pulse Ox 95 O2 Delivery Room Air Capillary Refill : Less Than 3 SecondsLess Than 3 Seconds General Appearance: No Apparent Distress, WD/WN Eyes: Bilateral Eye EOMI, Bilateral Eye Normal Inspection, Bilateral Eye PERRL HEENT: PERRL/EOMI, Normal ENT Inspection Neck: Full Range of Motion, Non Tender Respiratory: Lungs Clear Cardiovascular: Regular Rate, Rhythm Gastrointestinal: Normal Bowel Sounds Back: Normal Inspection, No CVA Tenderness, No Vertebral Tenderness Extremity: Swelling (Right LE around fracture.), Other (ROM not tested due to fracture) Neurologic/Psychiatric: Alert, Oriented x3 Skin: Normal Color, Warm/Dry Lymphatic: No Adenopathy Assessment/Plan Assessment and Plan Right tibia/fibula fracture Plan ORIF today right Tib/fib with indicated procedures Problems: (1) Fall Qualifiers: Qualified Codes: W19.XXXA - Unspecified fall, initial encounter (2) Fibula fracture Qualifiers: Qualified Codes: S82.831A - Other fracture of upper and lower end of right fibula, initial encounter for closed fracture (3) Tibia fracture Qualifiers: Qualified Codes: S82.301A - Unspecified fracture of lower end of right tibia , initial encounter for closed fracture (4) Laceration of scalp Qualifiers: Qualified Codes: S01.01XA - Laceration without foreign body of scalp, initial encounter (5) Alcohol abuse Admission Diagnosis Right tibia and fibula fracutre Clinical Quality Measures DVT/VTE Risk/Contraindication: Risk Factor Score Per Nursin RFS Level Per Nursing on Admit: 4+=Very High ERICKA LUCERO Oct 25, 2016 09:55
--- NOTE | 2016-10-25 11:58 | Consultation-Hospitalist ---
HPI History of Present Illness: HPI/Chief Complaint 1155 the patient is a 66-year-old white male who was brought to the emergency room by ambulance after a fall at home. The patient relates that he was in the kitchen of his home. He stated he got a bottle of tomato juice from the refrigerator and took a drink. He felt himself passing out and spun and fell to the floor. He believes he awakened immediately. He did strike his head causing a laceration over his right eyebrow. He was able to crawl back to his bed and called the ambulance. He states that he does not take care any medications although he modifies that with an occasional lisinopril 2.5 mg he takes when he finds his blood pressure to be elevated by his home monitoring device. Denied the use of alcohol or drugs of abuse. He reports that several years ago he suffered a fracture of the tibia and fibula on the right leg after jumping out of the bed of a pickup. He was off work for 13 months while that healed. He states that it never seemed the same after that. Date Seen 10/25/16 Attending Physician Albertina Camejo DO PCP No,Local Physician Referring Physician TEJINDER DELANEY MD Date of Admission Oct 24, 2016 at 22:50 Home Medications & Allergies Home Medications Reviewed patient Home Medication Reconciliation Form Allergies Allergies Coded Allergies No Known Drug Allergies (Unverified07/24/15) Past Fagthzs-Pejbrw-Dozvfg Hx Patient Social History Alcohol Use: Regular Use Recreational Drug Use: No Smoking Status: Never a Smoker Type Used: Smokeless Tobacco 2nd Hand Smoke Exposure: No Physical Abuse Screen: No Sexual Abuse: No Recent Foreign Travel: No Contact w/other who traveled: No Recent Hopitalizations: No Recent Infectious Disease Expo: No Immunizations Up To Date Date of Pneumonia Vaccine: Sep 22, 2014 Seasonal Allergies Seasonal Allergies: No Surgeries HX Surgeries: Yes Respiratory Hx Respiratory Disorders: No Cardiovascular Hx Cardiovascular Disorders: No Cardiac Disorders: Hypertension Neurological Hx Neurological Disorders: Yes Reproductive System Hx Reproductive Disorders: No Sexually Transmitted Disease: No Genitourinary Hx Genitourinary Disorders: No Gastrointestinal Hx Gastrointestinal Disorders: No Musculoskeletal Hx Musculoskeletal Disorders: Yes Musculoskeletal Disorders: Back Injury, Chronic Back Pain, Fractures, Spasms Endocrine Hx Endocrine Disorders: No HEENT HX ENT Disorders: Yes HEENT Disorders: Cataract Loss of Vision: Denies Hearing Impairment: Denies Cancer Hx Cancer: No Psychosocial Hx Psychiatric Problems: No Integumentary HX Skin/Integumentary Disorder: No Blood Transfusions Hx Blood Disorders: No Adverse Reaction to a Blood Tr: No Family Medical History Family Hx: Arthritis G8 BROTHER Cataracts 19 FATHER 19 MOTHER Osteoporosis 19 MOTHER Respiratory disorder G8 BROTHER Review of Systems Constitutional: see HPI EENTM: no symptoms reported Respiratory: no symptoms reported Cardiovascular: no symptoms reported Gastrointestinal: no symptoms reported Genitourinary: no symptoms reported Musculoskeletal: see HPI Skin: no symptoms reported Psychiatric/Neurological: No Symptoms Reported Physical Exam Physical Exam Vital Signs Vital Sign - Last 12Hours 10/24/16 18:50 Temp 98.1 Pulse 105 Resp 20 B/P (MAP) 165/108 Pulse Ox 95 O2 Delivery Room Air Capillary Refill : Less Than 3 SecondsLess Than 3 Seconds General Appearance: No Apparent Distress, WD/WN, Other (a horizontal 5 cm laceration was noted above the right brow with previous closure) Eyes: Bilateral Eye Normal Inspection HEENT: Normal ENT Inspection Neck: Normal Inspection Respiratory: Chest Non Tender, Lungs Clear, Normal Breath Sounds, No Accessory Muscle Use, No Respiratory Distress Cardiovascular: Regular Rate, Rhythm, No Edema, No Gallop, No JVD, No Murmur, Normal Peripheral Pulses Gastrointestinal: Normal Bowel Sounds, No Organomegaly, No Pulsatile Mass, Non Tender, Soft Back: Normal Inspection, No CVA Tenderness, No Vertebral Tenderness Extremity: Normal Capillary Refill, Other (right lower leg in splint) Neurologic/Psychiatric: Alert, Oriented x3, No Motor/Sensory Deficits, Normal Mood/Affect, 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 2.laceration right brow. 3.fracture proximal right fibula and distal right tibia. 4.hypertension by history Assessment and Plan Despite his statement that alcohol was not involved his blood alcohol level was 211. Plan proceed with fixation Diagnosis/Problems Diagnosis/Problems (1) Fall Status: Acute Qualifiers: Qualified Codes: W19.XXXA - Unspecified fall, initial encounter (2) Fibula fracture Status: Acute Qualifiers: Qualified Codes: S82.831A - Other fracture of upper and lower end of right fibula, initial encounter for closed fracture (3) Tibia fracture Status: Acute Qualifiers: Qualified Codes: S82.301A - Unspecified fracture of lower end of right tibia , initial encounter for closed fracture (4) Laceration of scalp Status: Acute Qualifiers: Qualified Codes: S01.01XA - Laceration without foreign body of scalp, initial encounter (5) Alcohol abuse Status: Acute Clinical Quality Measures DVT/VTE Risk/Contraindication: Risk Factor Score Per Nursin RFS Level Per Nursing on Admit: 4+=Very High KATELYN SINGH MD Oct 25, 2016 11:58
[2016-10-25] MEDS ORDERED: MIDAZOLAM 2 MG/2 ML (VERSED) VIAL ONE (16:58)
[2016-10-25] MEDS ORDERED: fentaNYL INJECTION 250 MCG/5 ML AMP ONE (16:59)
[2016-10-25] MEDS ORDERED: GENTAMICIN 40 MG/ML 2 ML INJ SDV ONE (17:14)
[2016-10-25] MEDS ORDERED: LIDOCAINE PF 2% 5 ML (XYLOCAINE) VIAL ONE (17:21)
[2016-10-25] MEDS ORDERED: SEVOFLURANE (ULTANE) 15 ML INHAL SOLN ONE ×4 (17:21→19:25)
[2016-10-25] MEDS ORDERED: LACTATED RINGERS 1,000 ML IV ONE (17:21)
[2016-10-25] MEDS ORDERED: proPOfol 200 MG/20 ML (DIPRIVAN) VIAL IV ONE (17:21)
[2016-10-25] MEDS ORDERED: DEXAMETHASONE PF 10 MG/ML (DECADRON) VIAL ONE (17:21)
[2016-10-25] MEDS ORDERED: ONDANSETRON 4 MG/2 ML (SDV) Z0FRAN ONE (17:21)
[2016-10-25] MEDS: LACTATED RINGERS 1,000 ML IV PRN ×2 (17:37→19:45)
[2016-10-25] MEDS ORDERED: fentaNYL INJECTION 100 MCG/2 ML AMP IVP PRN ×3 (17:45→20:00)
[2016-10-25] MEDS ORDERED: oxyCODONE/APAP 5/325MG (PERCOCET 5) TABLET PO PRN (17:45)
[2016-10-25] MEDS ORDERED: HYDROcodone/APAP 10 MG/325 MG (LORTAB) TAB PO PRN (17:45)
[2016-10-25] MEDS ORDERED: ceFAZolin 1,000 MG (ANCEF) VIAL ONE (17:50)
[2016-10-25] MEDS ORDERED: NS (IVPB) 0 ML ONE (17:51)
[2016-10-25] MEDS ORDERED: VANCOMYCIN 1000 MG/VIAL ONE (17:51)
[2016-10-25] MEDS: ceFAZolin INJECTION 1,000 MG in NS (IVPB) 50 ML IV SCH (18:00)
[2016-10-25] MEDS ORDERED: MEPERIDINE (DEMEROL) INJ 50 MG/ML ONE (18:19)
[2016-10-25] MEDS ORDERED: morphine INJ 10 MG/ML 1ML (SYR OR VIAL) ONE (18:20)
--- NOTE | 2016-10-25 19:49 | Progress Note-Post Operative ---
Post-Operative Progess Note Surgeon (s)/Wharf Hand (s) Surgeon TEJINDER DELANEY MD Wharf Hand: Luiz Domínguez PA-c Pre-Operative Diagnosis Acute closed right communited midshaft and distal tibia and fibula fx right Post-Operative Diagnosis same Procedure & Operative Findings Date of Procedure 10/25/16 Procedure Performed/Findings IM RUY RIGHT TIBIAL FRACTURE Anesthesia Type GETA Estimated Blood Loss Estimated blood loss (mL): 300ML Specimens/Packing Specimens Removed NONE Packing: DICTATION NUMBER [id number] TEJINDER DELANEY MD Oct 25, 2016 19:49
--- NOTE | 2016-10-25 19:52 | Diagnostic Imaging Report ---
INDICATION: ORIF. Fracture. COMPARISON: None FINDINGS: Multiple image intensifier views of the right tibia and fibula were obtained during ORIF. Images provided show placement of intramedullary siobhan throughout the tibial shaft. Proximal and distal anchor screws are also noted. There is improved alignment of the fracture fragments. IMPRESSION: 1. Fluoroscopic guidance provided during ORIF of the right tibia. Dictated by: Dictated on workstation # [id number]
[2016-10-25] MEDS ORDERED: ONDANSETRON 4 MG/2 ML (SDV) Z0FRAN IVP PRN (20:00)
[2016-10-25] MEDS ORDERED: morphine INJ 10 MG/ML 1ML (SYR OR VIAL) IVP PRN (20:00)
[2016-10-26] VITALS (12 sets, daily range): BP systolic 114–141; BP diastolic 62–91
[2016-10-26] MEDS: inSUlin (REGULAR) HUMAN 1 UNIT/0.01 ML (CHARGE PER UNIT) SC SCH ×2 (00:25→07:34)
[2016-10-26] MEDS: D5 1/2 NS W/KCL 20 MEQ/L 1,000 ML IV SCH (01:57)
[2016-10-26] MEDS: ceFAZolin INJECTION 1,000 MG in NS (IVPB) 50 ML IV SCH ×3 (02:13→19:59)
[2016-10-26 05:24] LABS: BASOPHILS % (AUTO) 0 % (0-10); EOSINOPHILS % (AUTO) 0 % (0-10); LYMPHOCYTES # (AUTO) 0.5 X 10^3 (1.0-4.0); LYMPHOCYTES % (AUTO) 7 % (12-44); MEAN CORPUSCULAR HEMOGLOBIN 32 PG (25-34); MEAN CORPUSCULAR HGB CONC 34 G/DL (32-36); MEAN CORPUSCULAR VOLUME 96 FL (80-99); MONOCYTES # (AUTO) 0.5 X 10^3 (0.0-1.0); MONOCYTES % (AUTO) 7 % (0-12); NEUTROPHILS # (AUTO) 5.9 X 10^3 (1.8-7.8); NEUTROPHILS % (AUTO) 86 % (42-75); PLATELET COUNT 187 10^3/uL (130-400); RED BLOOD COUNT 3.25 10^6/uL (4.35-5.85); RED CELL DISTRIBUTION WIDTH 12.3 % (10.0-14.5); WHITE BLOOD COUNT 6.9 10^3/uL (4.3-11.0)
[2016-10-26 05:43] LABS: ANION GAP 12 MMOL/L (5-14); BLOOD UREA NITROGEN 4 MG/DL (7-18); BUN/CREATININE RATIO 6; CALCIUM 7.6 MG/DL (8.5-10.1); CARBON DIOXIDE 26 MMOL/L (21-32); CHLORIDE 95 MMOL/L (98-107); CREATININE SERUM 0.67 MG/DL (0.60-1.30); GFR ESTIMATED > 60; GLUCOSE 212 MG/DL (70-105); MAGNESIUM 1.7 MG/DL (1.8-2.4); PHOSPHORUS 1.5 MG/DL (2.3-4.7); POTASSIUM 3.8 MMOL/L (3.6-5.0); SODIUM 133 MMOL/L (135-145)
[2016-10-26] MEDS ORDERED: VANCOMYCIN INJECTION 1,000 MG in NS (IVPB) 250 ML IV ONE (05:45)
[2016-10-26] MEDS: POTASSIUM CL 10MEQ/50ML IVPB 50 ML IV SCH (06:00)
[2016-10-26] MEDS: MAGNESIUM 1 GM/100 ML IVPB 100 ML IV SCH ×3 (06:00→07:40)
[2016-10-26] MEDS: KCL 20 MEQ TAB (K-DUR) PO SCH (06:00)
[2016-10-26] MEDS: THIAMINE 100 MG (VITAMIN B-1) TAB PO SCH (06:40)
[2016-10-26] MEDS: MULTIVIT W/MINERALS TAB (THERAGRAN M) PO SCH (06:40)
[2016-10-26] MEDS ORDERED: POTASSIUM PHOSPHATE INJ 30 MM in NS (IVPB) 250 ML IV NR ×2 (07:15→12:15)
--- NOTE | 2016-10-26 07:19 | Pulmonary Progress Note ---
Subjective Date Seen by Provider: Oct 26, 2016 Time Seen by Provider: 07:26 Subjective/Events-last exam PT is doing well no signs of withdrawal. Exam Exam Vital Signs Date Time Temp Pulse Resp B/P (MAP) Pulse Ox O2 Delivery O2 Flow Rate FiO2 10/26/16 06:00 101 14 141/80 96 Room Air 10/26/16 05:00 85 10 123/74 94 Room Air 10/26/16 04:00 Room Air 10/26/16 04:00 99.1 88 12 131/91 95 Room Air 10/26/16 03:00 103 19 129/83 96 Room Air 10/26/16 02:00 89 11 124/76 95 Room Air 10/26/16 01:00 87 13 129/82 95 Room Air 10/26/16 01:00 87 10/26/16 00:00 Room Air 10/26/16 00:00 99.2 84 15 139/83 95 Room Air 10/25/16 23:00 85 11 140/82 96 Room Air 10/25/16 22:00 79 8 142/82 95 Room Air 10/25/16 21:30 79 16 146/83 95 Room Air 10/25/16 21:15 76 14 144/85 96 Room Air 10/25/16 21:00 Room Air 10/25/16 21:00 98.9 78 13 151/87 98 Room Air 10/25/16 20:55 76 10/25/16 17:00 83 16 138/81 95 Room Air 10/25/16 16:00 99.3 Room Air 10/25/16 16:00 91 10 147/91 96 Room Air 10/25/16 15:00 85 18 143/85 97 Room Air 10/25/16 14:00 86 12 138/77 96 Room Air 10/25/16 13:00 85 11 127/77 95 Room Air 10/25/16 13:00 90 10/25/16 12:00 133 27 169/99 95 Room Air 10/25/16 12:00 99.2 Room Air 10/25/16 11:00 80 15 149/89 95 Room Air 10/25/16 10:00 82 14 138/82 95 Room Air 10/25/16 09:00 88 20 151/86 97 Room Air 10/25/16 08:00 87 21 145/91 96 Room Air 10/25/16 08:00 99.0 Room Air I & O 10/26/16 07:00 Intake Total 3505 ml Output Total 2145 ml Balance 1360 ml General Appearance: No Apparent Distress, WD/WN, Other (a horizontal 5 cm laceration was noted above the right brow with previous closure) HEENT: Normal ENT Inspection Neck: Normal Inspection Respiratory: Chest Non Tender, Lungs Clear, Normal Breath Sounds, No Accessory Muscle Use, No Respiratory Distress Cardiovascular: Regular Rate, Rhythm, No Edema, No Gallop, No JVD, No Murmur, Normal Peripheral Pulses Capillary Refill: Less Than 3 Seconds Peripheral Pulses: 2+ Dorsalis Pedis (R), 2+ Left Dors-Pedis (L), 2+ Radial Pulses (R), 2+ Radial Pulses (L) Gastrointestinal: normal bowel sounds, non tender, soft Extremity: Normal Capillary Refill, Other (right lower leg in splint) Neurologic/Psychiatric: Alert, Oriented x3, No Motor/Sensory Deficits, Normal Mood/Affect, 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 Skin: Normal Color, Warm/Dry Lymphatic: No Adenopathy Results Lab Laboratory Tests 10/24/16 22:05 10/25/16 05:10 10/26/16 04:30 Assessment/Plan Assessment/Plan S/P fall with tib/fib fracture -ortho consulted plan is for surgery today Anemia - probably secondary to surgery and dilutional -monitor and check occult stool ETOH dependance -monitor for withdrawal -- pt states he does not currently feel like he is withdrawing -ETOH protocol -Fall precautions Metabolic anion gap metabolic acidosis probably from ETOH -- improving - UDS- negative Elevated liver enzymes -Probably secondary to ETOH -Check Hep panel 232 PT is doing better will transfer to the floor. I am going to sign off at this time. Please call with any questions. Clinical Quality Measures DVT/VTE Risk/Contraindication: Risk Factor Score Per Nursin RFS Level Per Nursing on Admit: 4+=Very High BALBIR SPRAGUE DO Oct 26, 2016 07:19
[2016-10-26] MEDS: ONDANSETRON 4 MG/2 ML (SDV) Z0FRAN IV PRN (08:42)
[2016-10-26] MEDS: FOLIC ACID 1 MG TAB PO SCH (08:46)
[2016-10-26] MEDS: MAGNESIUM OXIDE (MAG-OX)400 MG TAB PO SCH ×2 (08:47→20:00)
[2016-10-26] MEDS: ASPIRIN 81 MG CHEW (CHILDREN'S ASA) PO SCH (08:47)
--- NOTE | 2016-10-26 08:54 | Progress Note-Standard ---
Standard Progress Note Progress Notes/Assess & Plan Date Seen by Provider: Oct 26, 2016 Time Seen by Provider: 08:50 Progress/Assessment & Plan Mr. Jones is POD 1 s/p Right ORIF tib/fib fracture who is doing well. He reports very little pain, but has been nauseated due to his morning medicine. Right LE has post op splint with expected swelling, Capillary refill is good Toes are warm and pink NVI A/P S/p Right ORIF tib/fib fracture PT BID WBAT with a walker, Continue current post op plan. Final Diagnosis S/P ORIF Tib/fib fracture Right LE. ERICKA LUCERO Oct 26, 2016 08:53
[2016-10-26] MEDS ORDERED: APIXABAN 2.5 MG (ELIQUIS) TABLET PO SCH (09:00)
--- NOTE | 2016-10-26 09:03 | Diagnostic Imaging Report ---
Portable supine AP chest at 5:49 AM. INDICATION: Dyspnea. This study is less than optimal as the patient is rotated. Allowing for this technical factor, the heart size is within normal limits and stable when compared to the prior exam of 10/25/2016. The lungs remain generally clear. There is still no sign of failure, pneumonia, or a pleural effusion to suggest an acute abnormality. The mediastinum is not widened. The osseous structures are intact. IMPRESSION: Stable chest. There has been no adverse change since the prior exam. Dictated by: Dictated on workstation # [id number]
--- NOTE | 2016-10-26 09:19 | OPERATIVE REPORT ---
PROCEDURE PHYSICIAN: TEJINDER DELANEY DATE OF PROCEDURE: 10/25/2016 PREOPERATIVE DIAGNOSIS: Comminuted closed mid shaft and distal tibia fracture with proximal fibula fracture, right tibia acute. POSTOPERATIVE DIAGNOSIS: Comminuted closed mid shaft and distal tibia fracture with proximal fibula fracture, right tibia acute. PROCEDURE: Intramedullary nail fixation, right tibia. SURGEON: Cali. CREPE LAMINATOR OPERATOR: Luiz Domínguez, PAC. ANESTHESIA: GETA. ESTIMATED BLOOD LOSS: 300 mL. FLUIDS: 1000 crystalloid. TOURNIQUET TIME: 0 CONDITION FOLLOWING PROCEDURE: Stable. COMPLICATIONS: None. START TIME: 1817 END TIME: 1931 COMPONENTS PLACED: Synthes titanium tibial nail 10 mm diameter 340 mm with 2 proximal locking screws 5.0 and 4 distal locking screws 5.0 and a proximal end cap. Screwdriver to remove all the screws is a T-[address] Screwdriver to remove the proximal end cap is a T-[address] The curriculum assistant, Mr. Luiz Domínguez was medically necessary for the procedure assisting the surgeon as an extra set of hands to facilitate exposure, retract soft tissues, hold the reduction while the nail was being placed, while the cross screws were being positioned and with closure. INDICATIONS: Mr. Jones is a 66-year-old gentleman who sustained this fracture last night, fairly simple twist and fall accident. He presented to [facility] emergency room, was admitted, kept comfortable and we proceeded to surgery today. Compartments are soft. He had large fracture blisters over the anterior aspect of the fracture and over the medial posterior aspects of the fracture. His skin otherwise was intact ____ (s/l need to refer to refishal) They were unroofed with prepping and draping and dressed with Xeroform at the end. PROCEDURE: Mr. Jones was taken to the operating room and properly identified. General endotracheal anesthesia was administered and the right lower extremity was sterilely prepped and draped in normal fashion for surgery with tourniquet around the right proximal thigh. The tourniquet was not utilized during the procedure. The starting position of the proximal tibia was identified with a hemostat. Due to the shape of his tibia and the position of the tibial tubercle, slight varus deformity of the proximal tibia at the starting position was slightly lateral to midline. Longitudinal skin incision about 3 inches was made along the lateral aspect of the ___. It was carried down to the peritenon, which was open in line with skin incision. The patellar tendon was pulled medially starting position, proximal tibia identified and intensification guidance and a guide pin placed then over drilled with the cannulated drill. The beaded guide siobhan was placed through the opening, across the fracture, into the ankle in a center center position with great care to place it just proximal to the ankle joint in a center center position. Reaming was then carried out starting with an 8.5, followed by 9.5, 10.5 and 11, not reaming past the isthmus with the last 3 reamers. The siobhan length was measured and the 10 x 340 siobhan was then slipped over the guide siobhan down to the distal tibia placing it into the center center position of the distal fragment. Two proximal screws were then placed one in the dynamic position proximally and the second in the S2 static locking position. The proximal locking jig was then removed and attention turned to the distal femur. The anterior/posterior locking screw was drilled, measured, and placed first, followed by the anterior medial to posterior lateral oblique screw, which was drilled, measured, and placed, followed by the 2 medial to lateral locking screws. To place these, we positioned the C-arm in the medial lateral position and aligned the screw holes, made skin incision, developed them down to the bone with the hemostat and drilled medial to lateral, measured, and placed both screws through the siobhan. Distal locking was carried out under image intensification guidance with great care to be sure the screws were through the siobhan and of adequate length. All were excellent. Final image intensification pictures were taken of the locking screws, siobhan and fracture. Just after removal of the proximal screw locking jig, the 0 end cap was placed in the proximal tibia. All of the incisions were irrigated with antibiotic saline and then the peritenon of the patellar tendon was repaired with [id number] number 1 undyed Vicryl plus suture. The deep subcutaneous of the proximal incision was closed with number 1 undyed Vicryl plus suture. Deep tendon with undyed plus suture superficially, running 3 Caprosyn subcuticular stitch in the skin. The medial proximal screws were closed with buried [id number] number 1 interrupted Vicryl plus superficially with 2-0 and Caprosyn in the skin. The distal 4 incisions were closed with a simple interrupted 2-0 undyed Vicryl plus. The incisions were all dressed with Xeroform. The fracture blisters were dressed with Xeroform, followed by 4 x 4's, ABDs, sterile cast padding, a sugar tong splint, and an JOSEE from toe to thigh and the patient was awakened and returned to recovery room in stable condition. No complications. Job ID: [id number] Dictated Date: 10/25/2016 19:42:53 Oyster Cultivator Date: 10/26/2016 08:52:43 / alexys
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
--- NOTE | 2016-10-26 10:47 | Anesthesia-General Post-Op ---
General Patient Condition Mental Status/LOC: Same as Preop Cardiovascular: Satisfactory Nausea/Vomiting: Absent Respiratory: Satisfactory Pain: Controlled Complications: Absent Post Op Complications Complications None Follow Up Care/Instructions Patient Instructions None needed. Anesthesia/Patient Condition Patient Condition Patient is doing well, no complaints, stable vital signs, no apparent adverse anesthesia problems. No complications reported per nursing. FLEX ORTEGA CRNA Oct 26, 2016 10:47
--- NOTE | 2016-10-26 14:49 | Physical Therapy Daily Note ---
PT Daily Note-Current Subjective Pt was lying in bed upon arrival to PT. Pt was agreeable to PT. Bed alarm was deactivated during treatment and was reset after tx. Pt was left lying in bed with all needs in reach. Pain Location: Right Location Body Site: Calf Pain Description: Acute Comment: patient did not rate and has refused pain medication Mental Status Patient Orientation: Normal For Age Transfers Functional [place] Measure 0=Not Assessed/NA 4=Minimal Assistance 1=Total Assistance 5=Supervision or Setup 2=Maximal Assistance 6=Modified [place] 3=Moderate Assistance 7=Complete IndependenceIRFPAI Quality Coding Scale 6 Independent with activity with or without an assistive device 5 Patient requires set up or clean up by helper. Patient completes activity by themselves 4 Supervision or touching assist (CGA). [place] provide cues , steadying assist 3 The helper provides less than half the effort to complete the activity 2 The helper provides more than half the effort to complete the activity 1 Dependent. The helper does all the effort to complete an activity 7 Patient refused to complete or attempt activity 9 The patient did not perform the activity before the current illness or injury 88 Not attempted due to Medical conditions or safety concerns Transfers (B, C, W/C) (FIM): 4 Scootin Supine to/from Sit: 4 Sit to/from Stand: 4 Pt demonstrated decreased safety awareness and rushed to sit and lie down after standing. Pt was instructed to take time to get in correct position prior to sitting. Pt requires CGA for safety with sit to stand transfers. Weight Bearing Weight Bearing Restriction: Weight Bearing/Tolerated Location Restriction: L LE Gait Training Gait (FIM): 1 Distance (FIM): 1=up to 49 ft Distance: 20' Gait Level of Assist: 4 Gait Persons Needed: 1 Gait Assistive Device: FWW Pt requires CGA for safety with gait. Pt was limited in distance walked due to pain and lack of motivation. Exercises Supine Ex: Quad Set, Glut sets, Straight leg raise, Hip abd/add Supine Reps: 24 (Pt completed 3 sets of 8 with short breaks to rest. ) Assessment Pt requires CGA for safety with gait training and transfers. Pt was limited in gait training due to pain and patient's refusal to take pain medication. PT educated patient on importance of pain control to receive full benefit from therapy and recovery. Patient then voices he does not like the way it makes him feel. PT consulted with RN on possibly receiving orders on changing pain medication. RN to contact physician. Pt presents with decreased safety awareness with stand to sit transfer after gait training and is instructed to slow down and attain proper position prior to sitting. PT Equip Tech Goals Snf Goals PT Equip Tech Goals Time Frame: Nov 05, 2016 Transfers (B,C,W/C) (FIM): 6 Gait (FIM): 6 Gait distance (FIM): 3=150 ft Gait Level of Assist: 6 Gait Assistive Device: FWW Stairs (FIM): 1 # of Steps: 2 Stairs Level Of Assist: 5 PT Plan Problem List Problem List: Activity Tolerance, Functional Strength, Safety, Balance, Gait, Transfer, Bed Mobility, ROM Treatment/Plan Treatment Plan: Continue Plan of Care Treatment Plan: Bed Mobility, Education, Functional Activity [place], Functional Strength, Gait, Safety, Therapeutic Exercise, Transfers Treatment Duration: Nov 05, 2016 Frequency: Twice Daily (M- and once on Tuesday) Estimated Hrs Per Day: .5 hour per day Patient and/or Family Agrees t: Yes Safety Risks/Education Patient Education: Gait Training, Transfer Techniques Teaching Recipient: Patient Teaching Methods: Demonstration, Discussion Response to Teaching: Verbalize Understanding Time/GCodes Time In: 1425 Time Out: 1440 Total Billed Treatment Time: 15 Total Billed Treatment 1 visit FA 15 min REJI KING PT Oct 26, 2016 14:49
[2016-10-27 03:50] VITALS: BP 118/76
[2016-10-27 05:28] LABS: BASOPHILS % (AUTO) 0 % (0-10); EOSINOPHILS % (AUTO) 0 % (0-10); LYMPHOCYTES # (AUTO) 1.4 X 10^3 (1.0-4.0); LYMPHOCYTES % (AUTO) 18 % (12-44); MEAN CORPUSCULAR HEMOGLOBIN 32 PG (25-34); MEAN CORPUSCULAR HGB CONC 33 G/DL (32-36); MEAN CORPUSCULAR VOLUME 97 FL (80-99); MONOCYTES # (AUTO) 1.1 X 10^3 (0.0-1.0); MONOCYTES % (AUTO) 13 % (0-12); NEUTROPHILS # (AUTO) 5.5 X 10^3 (1.8-7.8); NEUTROPHILS % (AUTO) 69 % (42-75); PLATELET COUNT 170 10^3/uL (130-400); RED BLOOD COUNT 2.89 10^6/uL (4.35-5.85); RED CELL DISTRIBUTION WIDTH 12.3 % (10.0-14.5)
[2016-10-27 05:50] LABS: ANION GAP 12 MMOL/L (5-14); BLOOD UREA NITROGEN 6 MG/DL (7-18); BUN/CREATININE RATIO 9; CALCIUM 7.9 MG/DL (8.5-10.1); CARBON DIOXIDE 29 MMOL/L (21-32); CHLORIDE 92 MMOL/L (98-107); CREATININE SERUM 0.65 MG/DL (0.60-1.30); GFR ESTIMATED > 60; GLUCOSE 113 MG/DL (70-105); PHOSPHORUS 1.9 MG/DL (2.3-4.7); POTASSIUM 3.1 MMOL/L (3.6-5.0); SODIUM 133 MMOL/L (135-145)
[2016-10-27] MEDS: MULTIVIT W/MINERALS TAB (THERAGRAN M) PO SCH (06:16)
[2016-10-27] MEDS: THIAMINE 100 MG (VITAMIN B-1) TAB PO SCH (06:16)
--- NOTE | 2016-10-27 08:10 | Diagnostic Imaging Report ---
INDICATION: Dyspnea. Compared 10/26/2016. FINDINGS: The lungs are clear. The heart size and vascularity within normal limits. There is no effusion or pneumothorax. IMPRESSION: No acute-appearing abnormality. Dictated by: Dictated on workstation # [id number]
[2016-10-27 08:23] VITALS: BP 113/61
[2016-10-27] MEDS: MAGNESIUM OXIDE (MAG-OX)400 MG TAB PO SCH (09:06)
[2016-10-27] MEDS: FOLIC ACID 1 MG TAB PO SCH (09:07)
[2016-10-27] MEDS: ASPIRIN 81 MG CHEW (CHILDREN'S ASA) PO SCH (09:07)
[2016-10-27] MEDS ORDERED: KCL 20 MEQ TAB (K-DUR) PO NR (09:12)
--- NOTE | 2016-10-27 09:52 | Physician Query Clarification ---
PQ-Intro New Diagnosis Admission/Discharge Admission Date: Oct 24, 2016 at 22:50 Discharge Date: The medical record reflects the following clinical scenario: History/Risk Factors: Fall with leg buckling under him and felt a snap in the right lopez. Clinical Findings: 3 view right xray of the right foot on 10/24/16 impression was," Decreased bone mineral density concerning for underlying osteopenia/osteoporosis. Correlation with DEXA scan is recommended. Treatment: Intramedullary nail fixation,right tibia. Question: What condition best reflects the above clinical scenario? Please document below. 1. Pathologic fracture of the right tibia and fibula due to osteoporosis. 2. Traumatic fracture of the right tibia and fibula. 3. Other, with explanation of the clinical findings. 4. Clinically undetermined, no explanation for the clinical findings. PHYSICIAN RESPONSE What condition reflects above: Clinically undetermined In responding to this query, please exercise your independent professional judgment. The purpose of this communication is to more accurately reflect the complexity of your patients condition. The fact that a question is asked does not imply that any particular answer is desired or expected. Thank you for your timely response to this clarification. Requestors name: Chelle Rose [facility] Phone # ext [phone] or [phone] THIS PHYSICIAN QUERY FORM IS A PERMANENT PART OF THE MEDICAL RECORD CHELLE ROSE Oct 27, 2016 09:52 TEJINDER DELANEY MD Nov 18, 2016 09:32
--- NOTE | 2016-10-27 10:56 | Physical Therapy Daily Note ---
PT Daily Note-Current Subjective Pt laying Supine in bed with head up upon arrival. Pt visits with PT, Dr Camejo and Nurse about going home. Pt reports feeling ready and wants to go now. Pain Comment: Pt reports little pain but won't rate or take meds, just wants to go home. Mental Status Patient Orientation: Person, Place, Time, Situation Transfers Functional [place] Measure 0=Not Assessed/NA 4=Minimal Assistance 1=Total Assistance 5=Supervision or Setup 2=Maximal Assistance 6=Modified [place] 3=Moderate Assistance 7=Complete IndependenceIRFPAI Quality Coding Scale 6 Independent with activity with or without an assistive device 5 Patient requires set up or clean up by helper. Patient completes activity by themselves 4 Supervision or touching assist (CGA). [place] provide cues , steadying assist 3 The helper provides less than half the effort to complete the activity 2 The helper provides more than half the effort to complete the activity 1 Dependent. The helper does all the effort to complete an activity 7 Patient refused to complete or attempt activity 9 The patient did not perform the activity before the current illness or injury 88 Not attempted due to Medical conditions or safety concerns Scootin Rollin Supine to/from Sit: 5 Sit to/from Stand: 5 Pt is a little impulsive and really wants to go home. Pt is able to to transfer though with little pain. Weight Bearing Weight Bearing Restriction: Weight Bearing/Tolerated Location Restriction: L LE Treatments Pt visited with Nurse, Dr Camejo and PT about feeling ready to go home and wants to discharge as soon as possible. Pt reports having own FWW and not needing other AE for home. Pt shows staff how he can transfer without difficulty. Pt rests in bed at end of visit with all needs met. Dr Camejo to contact Ortho Dr to confirm discharge today. Assessment Current Status: Fair Progress Pt reports being ready to discharge. Pt is impulsive but can complete transfers and ambulation at WBAT. PT Senior Internet Sales Consultant Goals Fci Goals PT [facility]ci Goals Time Frame: Nov 05, 2016 Transfers (B,C,W/C) (FIM): 6 Gait (FIM): 6 Gait distance (FIM): 3=150 ft Gait Level of Assist: 6 Gait Assistive Device: FWW Stairs (FIM): 1 # of Steps: 2 Stairs Level Of Assist: 5 PT Plan Problem List Problem List: Safety Treatment/Plan Treatment Plan: Continue Plan of Care Treatment Plan: Bed Mobility, Education, Functional Activity [place], Functional Strength, Gait, Safety, Therapeutic Exercise, Transfers Treatment Duration: Nov 05, 2016 Frequency: Twice Daily (- and once on Tuesday) Estimated Hrs Per Day: .5 hour per day Patient and/or Family Agrees t: Yes Safety Risks/Education Patient Education: Reviewed Precautions, Correct Positioning, Safety Issues Teaching Recipient: Patient Teaching Methods: Discussion Response to Teaching: Verbalize Understanding Time/GCodes Time In: 1025 Time Out: 1040 Total Billed Treatment Time: 15 Total Billed Treatment visit, FA (15m) KERI RUSSELL NEWS COPY EDITOR Oct 27, 2016 10:56
[2016-10-27] MEDS ORDERED: ASPI-999 PO (11:25)
--- NOTE | 2016-10-27 12:06 | Discharge Summary-Hospitalist ---
Diagnosis/Chief Complaint Date of Admission Oct 24, 2016 at 22:50 Date of Discharge Discharge Date: Oct 27, 2016 Admission Diagnosis Syncopal episode. 2.laceration right brow. 3.fracture proximal right fibula and distal right tibia. 4.hypertension by history Discharge Diagnosis Notes from 10/27/16 SW Review: Pt does not want to go to rehab, he wants to stay until tomorrow so someone can pick him up. Pt would like to DC home Patient Interview: Pt would like to DC today. PT states that he is doing well and ambulating well. Pt has been walking well with a walker. Pt states that he has a walker at home Pt denies taking pain meds during this visit and does not need an rx. Pt states that when he had broken his back he took a lot of pain medication and it made him very sick, so he does not want to take any pain medication now. Pt confirms having BMs and urinating Plan: Confer with ortho about DC Ambulate Scribed by Jazmyne Oneill under the direct supervision of Dr. Camejo. (1) Fall Status: Acute (2) Fibula fracture Status: Acute (3) Tibia fracture Status: Acute (4) Laceration of scalp Status: Acute (5) Alcohol abuse Status: Acute Discharge Summary Discharge Physical Examination Allergies: Coded Allergies: No Known Drug Allergies (Unverified , 07/24/15) Vitals & I&Os Vital Signs Date Time Temp Pulse Resp B/P (MAP) Pulse Ox O2 Delivery O2 Flow Rate FiO2 10/27/16 14:00 69 20 133/67 98 Room Air 10/27/16 12:10 98.6 Hospital Course Hospital course: Patient was admitted to ICU for detox protocol for alcohol intoxication and heavy alcohol use chronically after he fell and sustained a right tibiafibula fracture that was ultimately repaired by Dr. Leiva in an uncomplicated manner. He did not require any pain medication and he refused to take a prescription at discharge her pain medication and he was placed on low dose aspirin for 30 days for DVT prophylaxis per orthopedic protocol and will have a close follow-up with Dr. Leiva to evaluate the siobhan placement and healing of the fracture. Labs (last 24 hrs) Microbiology 10/25/16 MRSA Screen - Final, Complete MRSA not isolated Pending Labs Discharge Home Medications: Active Scripts Active Aspirin 81 Mg Tab.chew 81 Mg PO DAILY 30 Days Instructions to patient/family Please see electonic discharge instructions given to patient. Clinical Quality Measures DVT/VTE Risk/Contraindication: Risk Factor Score Per Nursin RFS Level Per Nursing on Admit: 4+=Very High Problem Qualifiers (1) Fall: Encounter type: initial encounter Qualified Codes: W19.XXXA - Unspecified fall, initial encounter (2) Fibula fracture: Encounter type: initial encounter Fibula location: proximal Fracture type: closed Fracture morphology: unspecified fracture morphology Laterality: right Qualified Codes: S82.831A - Other fracture of upper and lower end of right fibula, initial encounter for closed fracture (3) Tibia fracture: Encounter type: initial encounter Tibia location: distal Fracture type: closed Fracture morphology: unspecified fracture morphology Laterality: right Qualified Codes: S82.301A - Unspecified fracture of lower end of right tibia, initial encounter for closed fracture (4) Laceration of scalp: Encounter type: initial encounter Qualified Codes: S01.01XA - Laceration without foreign body of scalp, initial encounter MONICA CAMEJO DO Oct 27, 2016 12:06
[2016-10-27 12:10] VITALS: BP 133/67
[2016-10-27 14:00] VITALS: BP 133/67
== END 2016-10-27 14:00 | disposition home or self-care (01) | DRG 493 ==
LOC: EDUNIT# 18:49 → ER 18:50 → ICU 22:50 → 4TH 10-26 11:15
PROVIDERS: ADMIT Internal Medicine; ATTEND Internal Medicine
PROC: 0QSG06Z Reposition Right Tibia with Intramedullary Internal Fixation Device, Open Approach (ICD-10-PCS; principal; 2016-10-25 17:57)
DX: S82.301A Unspecified fracture of lower end of right tibia, initial encounter for closed fracture (principal); S82.251A Displaced comminuted fracture of shaft of right tibia, initial encounter for closed fracture; S82.831A Other fracture of upper and lower end of right fibula, initial encounter for closed fracture; S01.81XA Laceration without foreign body of other part of head, initial encounter; E87.2 Acidosis; F10.229 Alcohol dependence with intoxication, unspecified; R55 Syncope and collapse; I10 Essential (primary) hypertension; D64.9 Anemia, unspecified; F17.220 Nicotine dependence, chewing tobacco, uncomplicated; K21.9 Gastro-esophageal reflux disease without esophagitis; I67.1 Cerebral aneurysm, nonruptured; R63.4 Abnormal weight loss; W19.XXXA Unspecified fall, initial encounter; Y92.000 Kitchen of unspecified non-institutional (private) residence as the place of occurrence of the external cause
CPT/HCPCS: 29505; 36415; 70450; 71010; 72125; 73590; 73610; 73630; 80048; 80053; 80074; 80306; 80320; 81000; 82274; 82962; 83605; 83735; 84100; 84484; 85007; 85025; 85027; 87081; 93005; 96361; 96374; 96375; 96376

== ENCOUNTER 2022-06-06 15:09 | Emergency (ER) | payer MEDICARE, OTHER ==
[~2022-06-06] VITALS: Ht 167.7 cm; Wt 52.3 kg
[~2022-06-06 15:09] MED LIST changes: +ACHD5005 PO; +ASPI-999 PO; -HYDR-3812 PO; -LISI-556 PO; +LISI5TAB20 PO; -ONDANSETRON 4 MG/2 ML (SDV) Z0FRAN ONE; +TIZA-186 PO; -TIZA4TAB3 PO
[2022-06-06 15:13] VITALS: BP 153/91
--- NOTE | 2022-06-06 15:27 | ED General ---
General Stated Complaint: GEN WEAKNESS; VOMITING Source of Information: Patient, Caregiver History of Present Illness Date Seen by Provider: Jun 06, 2022 Time Seen by Provider: 15:16 Initial Comments 71-year-old male presenting with caregiver to the emergency department due to concerns of nausea, vomiting, diarrhea and not wanting to eat over the last 10 days or so. He is continuing to drink alcohol but was not eating regularly according to the caregiver. He has had multiple falls and was complaining of some hip pain as well as has contusion and bruising to the right side of his scalp and baptist. He drinks alcohol daily and reports that he had 2 Coors beers today. Caregiver reports she has been trying to convince him to come and be seen for the 10 days but only today was finally able to convince him to come and be seen after they told him he could drink 2 beers and then come to the ED. Timing/Duration: Constant (over 10 days of symptoms of drinking alcohol but not eating and drinking normally otherwise.) Severity: Moderate Associated Systoms: No Chest Pain; Cough (mild intermittent); No Diaphoresis, No Fever/Chills; Headaches (right side of head where he hit his head), Loss of Appetite, Malaise, Nausea/Vomiting; No Seizure, No Shortness of Air, No Syncope; Weakness Allergies and Home Medications Allergies Coded Allergies: No Known Drug Allergies (Unverified , 07/24/15) Patient Home Medication List Home Medication List Reviewed: Yes Aspirin (Aspirin) 81 Mg Tab.chew, 81 MG PO DAILY Prescribed by: MONICA GOMEZ on 10/27/16 3295 Review of Systems Review of Systems Constitutional: No chills, No fever; malaise, weakness (generalized) EENTM: no symptoms reported Respiratory: see HPI Cardiovascular: No chest pain Gastrointestinal: No abdominal pain; diarrhea, nausea, vomiting Genitourinary: no symptoms reported Musculoskeletal: see HPI Skin: see HPI Psychiatric/Neurological: See HPI Past Nhpyygd-Nvddyi-Ozqyyb Hx Seasonal Allergies Seasonal Allergies: No Past Medical History Surgery/Hospitalization HX: Alcoholism Surgeries: No Respiratory: No Currently Using CPAP: No Currently Using BIPAP: No Cardiac: Yes Hypertension Neurological: No Reproductive Disorders: No Sexually Transmitted Disease: No Genitourinary: No Gastrointestinal: No Musculoskeletal: Yes Back Injury, Chronic Back Pain, Fractures, Spasms Endocrine: No HEENT: No Cataract Loss of Vision: Denies Hearing Impairment: Denies Cancer: No Psychosocial: No Integumentary: No Blood Disorders: No Adverse Reaction/Blood Tranf: No Family Medical History Arthritis G8 BROTHER Cataracts 19 FATHER 19 MOTHER Osteoporosis 19 MOTHER Respiratory disorder G8 BROTHER Physical Exam Vital Signs Vital Signs - First Documented 06/06/22 15:13 Temp 35.9 Pulse 106 Resp 12 B/P (MAP) 153/91 (111) Pulse Ox 97 O2 Delivery Room Air Capillary Refill : Height, Weight, BMI Height: 5'6.00" Weight: 126lbs. 8.0oz. 57.440201kv; 22.1 BMI Method:Stated General Appearance: No Apparent Distress, Chronically ill, Cachetic Eyes: Bilateral Eye PERRL, Bilateral Eye EOMI HEENT: PERRL/EOMI, Pharynx Normal; No Moist Mucous Membranes (slightly dry mucous membranes) Neck: Full Range of Motion, Normal Inspection, Non Tender, Supple Respiratory: Chest Non Tender, Lungs Clear, Normal Breath Sounds, No Accessory Muscle Use, No Respiratory Distress Cardiovascular: Regular Rate, Rhythm, Normal Peripheral Pulses Gastrointestinal: Normal Bowel Sounds, No Pulsatile Mass, Non Tender, Soft Rectal: Deferred Extremity: Normal Capillary Refill, No Pedal Edema Neurologic/Psychiatric: Alert, Oriented x3, traveling clerk II-XII Norm as Tested Skin: Warm/Dry, Ecchymosis (right baptist and scalp area) Progress/Results/Core Measures Suspected Sepsis SIRS Temperature: Pulse: Respiratory Rate: Laboratory Tests 06/06/22 15:40: White Blood Count 11.7H Blood Pressure / Mean: Laboratory Tests 06/06/22 15:40: Creatinine 1.39H, INR Comment 0.9, Platelet Count 484H, Total Bilirubin 2.3H Results/Orders Lab Results Laboratory Tests Test 06/06/22 15:40 06/06/22 18:05 Range/Units White Blood Count 11.7 H 4.3-11.0 10^3/uL Red Blood Count 5.86 H 4.30-5.52 10^6/uL Hemoglobin 18.8 H 13.3-17.7 g/dL Hematocrit 51 40-54 % Mean Corpuscular Volume 87 80-99 fL Mean Corpuscular Hemoglobin 32 25-34 pg Mean Corpuscular Hemoglobin Concent 37 H 32-36 g/dL Red Cell Distribution Width 11.9 10.0-14.5 % Platelet Count 484 H 130-400 10^3/uL Mean Platelet Volume 9.9 9.0-12.2 fL Immature Granulocyte % (Auto) 1 % Neutrophils (%) (Auto) 78 H 42-75 % Lymphocytes (%) (Auto) 7 L 12-44 % Monocytes (%) (Auto) 13 H 0-12 % Eosinophils (%) (Auto) 1 0-10 % Basophils (%) (Auto) 1 0-10 % Neutrophils # (Auto) 9.1 H 1.8-7.8 10^3/uL Lymphocytes # (Auto) 0.8 L 1.0-4.0 10^3/uL Monocytes # (Auto) 1.5 H 0.0-1.0 10^3/uL Eosinophils # (Auto) 0.1 0.0-0.3 10^3/uL Basophils # (Auto) 0.1 0.0-0.1 10^3/uL Immature Granulocyte # (Auto) 0.1 0.0-0.1 10^3/uL Neutrophils % (Manual) 73 % Lymphocytes % (Manual) 11 % Monocytes % (Manual) 16 % Prothrombin Time 13.0 12.2-14.7 SEC INR Comment 0.9 0.8-1.4 Activated Partial Thromboplast Time 23 L 24-35 SEC Sodium Level 118 *L 135-145 MMOL/L Potassium Level 2.5 *L 3.6-5.0 MMOL/L Chloride Level 67 L 98-107 MMOL/L Carbon Dioxide Level 29 21-32 MMOL/L Anion Gap 22 H 5-14 MMOL/L Blood Urea Nitrogen 40 H 7-18 MG/DL Creatinine 1.39 H 0.60-1.30 MG/DL Estimat Glomerular Filtration Rate 54 BUN/Creatinine Ratio 29 Glucose Level 215 H 70-105 MG/DL Calcium Level 9.5 8.5-10.1 MG/DL Corrected Calcium 8.5-10.1 MG/DL Magnesium Level 3.0 H 1.6-2.4 MG/DL Total Bilirubin 2.3 H 0.1-1.0 MG/DL Aspartate Amino Transf (AST/SGOT) 59 H 5-34 U/L Alanine Aminotransferase (ALT/SGPT) 65 H 0-55 U/L Alkaline Phosphatase 98 40-136 U/L Troponin I < 0.30 <0.30 NG/ML Pro-B-Type Natriuretic Peptide 889.8 H <125.0 PG/ML Total Protein 9.1 H 6.4-8.2 GM/DL Albumin 4.7 H 3.2-4.5 GM/DL Lipase 271 H 8-78 U/L Serum Alcohol 75 H <10 MG/DL Urine Color YELLOW Urine Clarity CLEAR Urine pH 6.0 5-9 Urine Specific [place] 1.010 L 1.016-1.022 Urine Protein TRACE H NEGATIVE Urine Glucose (UA) NEGATIVE NEGATIVE Urine Ketones 1+ H NEGATIVE Urine Nitrite NEGATIVE NEGATIVE Urine Bilirubin NEGATIVE NEGATIVE Urine Urobilinogen 0.2 < = 1.0 MG/DL Urine Leukocyte Esterase NEGATIVE NEGATIVE Urine RBC (Auto) 1+ H NEGATIVE Urine RBC 5-10 H /HPF Urine WBC NONE /HPF Urine Crystals NONE /LPF Urine Bacteria FEW H /HPF Urine Casts PRESENT /LPF Urine Hyaline Casts 10-25 H /LPF Urine Mucus MODERATE H /LPF Urine Culture Indicated YES Urine Opiates Screen NEGATIVE NEGATIVE Urine Oxycodone Screen NEGATIVE NEGATIVE Urine Methadone Screen NEGATIVE NEGATIVE Urine Propoxyphene Screen NEGATIVE NEGATIVE Urine Barbiturates Screen NEGATIVE NEGATIVE Ur Tricyclic Antidepressants Screen NEGATIVE NEGATIVE Urine Phencyclidine Screen NEGATIVE NEGATIVE Urine Amphetamines Screen NEGATIVE NEGATIVE Urine Methamphetamines Screen NEGATIVE NEGATIVE Urine Benzodiazepines Screen NEGATIVE NEGATIVE Urine Cocaine Screen NEGATIVE NEGATIVE Urine Cannabinoids Screen NEGATIVE NEGATIVE My Orders Orders - RIKY ANTONIO MD Cbc With Automated Diff (06/06/22 15:23) Magnesium (06/06/22 15:23) Chest 1 View Ap/Pa Only (06/06/22 15:23) Ekg Tracing (06/06/22 15:23) Comprehensive Metabolic Panel (06/06/22 15:23) Protime With Inr (06/06/22 15:23) Partial Thromboplastin Time (06/06/22 15:23) O2 (06/06/22 15:23) Monitor-Rhythm Ecg Trace Only (06/06/22 15:23) Ed Iv/Invasive Line Start (06/06/22 15:23) Lipase (06/06/22 15:23) Troponin I Fs (06/06/22 15:23) Probnp Fs (06/06/22 15:23) Alcohol (06/06/22 15:23) Ua Culture If Indicated (06/06/22 15:23) Drug Screen Stat (Urine) (06/06/22 15:23) Ct Head/Cervical Spine Wo (06/06/22 15:23) Pelvis/Fer Hips 2 View (06/06/22 15:23) Ns Iv 1000 Ml (Sodium Chloride 0.9%) (06/06/22 15:43) Ondansetron Injection (Zofran Injectio (06/06/22 15:43) Pantoprazole Injection (Protonix Injecti (06/06/22 15:43) Manual Differential (06/06/22 15:40) Metoclopramide Injection (Reglan Injecti (06/06/22 17:16) Urine Culture (06/06/22 18:05) Vital Signs/I&O 06/06/22 06/06/22 15:13 16:55 Temp 35.9 Pulse 106 Resp 12 B/P (MAP) 153/91 (111) Pulse Ox 97 97 O2 Delivery Room Air Room Air Capillary Refill : Progress Note #1: Progress Note Potential diagnosis of alcohol withdrawal, pancreatitis, hepatitis, pneumonia, intracranial hemorrhage, hip fracture, cervical spine fracture, abdominal cancer, electrolyte imbalance, renal failure, hepatic failure. Placed patient on cardiac telemetry monitoring and my initial interpretation shows his heart rate is sinus tachycardia with a heart rate around 108. Obtain peripheral IV access and send labs for complete blood count, comprehensive metabolic profile, coags, lipase, alcohol level, urinalysis, urine drug screen. Obtain electrocardiogram since he has had frequent falls and not eating and d rinking well. Obtain CT scan of the head and cervical spine since he had falls and was having a headache. He has bruising and contusion to the right baptist. Obtain a chest x-ray since he has had some cough and frequent falls. Pelvis with bilateral hip x-rays to look for possible occult fracture. Administer normal saline 1 L IV fluid bolus for hydration, Zofran 4 mg IV for nausea vomiting, Protonix 40 mg IV for possible gastritis with alcohol abuse and not eating and drinking well. Progress Note #2: Time: 17:18 Progress Note On personal interpretation and review of his CT scan of the head and cervical spine I did not appreciate any acute intracranial hemorrhage or fracture. His chest x-ray did not show any acute infiltrate on my interpretation. Pelvis and hips x-rays did not show any acute fracture dislocation in my opinion. The electrocardiogram showed sinus tachycardia without ST elevation. There is no prior tracing for comparison. His labs showed white blood cell count at the upper limit of normal at 11.7. His hemoglobin was elevated to 18.8 to indicate possible hemoconcentration and dehydration. His platelets were okay at 484. On his comprehensive metabolic profile he had hyponatremia with a sodium of 118, hypokalemia with a potassium down to 2.5, hypochloremia with chloride down to 67, renal insufficiency with elevated BUN to 40 and creatinine of 1.39. His glucose was elevated to 215. His magnesium was elevated to 3 which again could go along with some dehydration and concentration. His total bilirubin was elevated to 2.3 with AST of 59 and ALT of 65. His lipase was over 3 times the upper limit of normal at 271. His troponin was negative at less than 0.3. His proBNP was slightly elevated to 889.8. Urine drug screen was negative for all substances. Alcohol level was 75. On his urinalysis his specific gravity was 1.010 but he did have 1+ ketones, 1+ red blood cells, few bacteria with hyaline cast. He had no white blood cells and negative nitrites and leukocyte Estrace. A culture was reflexed with him having a few bacteria and hyaline casts. His heart rate stayed around 100 to 108 despite IVF and nausea medicine. He was not having emesis after the Zofran and Protonix. 1847 I reviewed with the patient that his labs were showing electrolytes were off enough as well as the pancreatitis and he was at risk for having seizures, frequent falls, stroke, heart attack, organ failure. Stressed importance of stopping alcohol and advised him that I would like to admit him to the hospital for his conditions. Initially he was refusing and said that he would go to the [place] [facility] in the morning and then have them get him to [place]. His friend in the room stressed again the importance and life-threatening potential conditions that I had just reviewed with him as well. Between the 2 of us he did finally agree that he would be willing to go to [place] for admission. He was having some more spitting up while I was talking to him so I ordered a dose of Reglan 5 mg IV. At 171 I discussed the case with Dr. Rosenthal, the hospitalist public information officer. I reviewed with her the presentation of the patient as well as the pertinent labs of low sodium, low potassium, renal insufficiency, alcohol and lipase levels. I reviewed that he had negative CT scan and x-rays looking for intracranial hemorrhage or skull fracture or pelvis fracture or pneumonia. As patient was refusing EMS transport and wanted his friend to drive him I was checking with her to see if she would still accept him as an admission. She was agreeable with admit but as the patient was refusing EMS transport she would like him re-evaluated in the ED prior to going up to an ICU bed. Updated patient and friend and he was still willing to go down. We will remove the peripheral IV access prior to discharge from the ER here so that if he does not end up down in [place] he does not have an IV still in place. I called and updated Sandy Buitrago the nurse practitioner in the ED and she said that Dr. Rosenthal had talked to Dr. Barrett the [facility] ED doctor. 1847 I updated BERTIN Buitrago at the [facility] ED that the patient was just now leaving with his friend. Hopefully they will go straight to the ED as they have been directed. ECG Initial ECG Impression Date: Jun 06, 2022 Initial ECG Impression Time: 15:41 Initial ECG Rate: 104 Initial ECG Rhythm: S.Tach Initial ECG Comparisson: No Previous ECG Available Comment On my personal interpretation and review the electrocardiogram shows sinus tachycardia with occasional supraventricular premature complexes and a rate of 104 bpm. IA interval [address] elevation. QT intervals 356 ms with a QTc interval 417 ms. He has no prior tracing available for comparison. Diagnostic Imaging Diagonstic Imaging: Xray Plain Films/CT/US/NM/MRI: chest [facility] [place] NAME: JOSE ANGEL YANEZ [facility] REC#: [id number] PT STATUS: REG ER : 1950 PHYSICIAN: RIKY ANTONIO MD ADMIT DATE: 06/06/22/ER FS Signed Date of Exam:06/06/22 CHEST 1 VIEW AP/PA ONLY EXAMINATION: Chest radiograph TECHNIQUE: AP upright view of the chest obtained. HISTORY: general weakness, cough, n/v COMPARISON: Chest radiograph 10/27/2016. FINDINGS: Normal lung volume. No airspace opacity. Cardiac silhouette and vascularity are within normal limits. No pleural effusion or pneumothorax. No acute osseous abnormality. IMPRESSION: No acute chest findings. Dictated by: Dictated on workstation # [id number] Dict: 06/06/22 1631 Trans: 06/06/22 1632 [facility] [id number] Interpreted by: VIPIN QUEEN DO Electronically signed by: VIPIN QUEEN DO 06/06/22 163 Reviewed: Reviewed by Dc Diagonstic Imaging: Xray Plain Films/CT/US/NM/MRI: pelvis, hip Comments [facility] [place] [place] NAME: JOSE ANGEL YANEZ MED REC#: [id number] PT STATUS: REG ER : 1950 PHYSICIAN: RIKY ANTONIO MD ADMIT DATE: 06/06/22/ER FS Signed Date of Exam:06/06/22 PELVIS/FER HIPS 2 VIEW Pelvis/fer hips 2 view TECHNIQUE: AP pelvis with frog-leg lateral views of each hip for a total of 3 views. COMPARISON: None available. INDICATION: Bilateral hip pain. FINDINGS: No acute fracture in the proximal femurs. 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 No displaced fracture within the obturator ring on either side. Hyperdensities overlying the sacral ala are most likely due to prior sacroplasty. Extensive arterial calcifications are present. IMPRESSION: No acute fracture about either hip. Dictated by: Dictated on workstation # [id number] Dict: 06/06/22 1625 Trans: 06/06/22 1641 [facility] [id number] Interpreted by: SHAVONNE WARREN MD Electronically signed by: SHAVONNE WARREN MD 06/06/22 164 Reviewed: Reviewed by Dc Diagonstic Imaging: CT Plain Films/CT/US/NM/MRI: c-spine, head Comments [facility] [place] [place] NAME: JOSE ANGEL YANEZ MED REC#: [id number] PT STATUS: REG ER : 1950 PHYSICIAN: RIKY ANTONIO MD ADMIT DATE: 06/06/22/ER FS Signed Date of Exam:06/06/22 CT HEAD/CERVICAL SPINE WO PROCEDURE: CT head and CT cervical spine without contrast. TECHNIQUE: Multiple contiguous axial images were obtained through the brain and cervical spine without the use of intravenous contrast. Sagittal and coronal reformations through the cervical spine were then performed. Auto Exposure Controls were utilized during the CT exam to meet ALARA standards for radiation dose reduction. INDICATION: Headache and neck pain COMPARISON: 10/24/2016 FINDINGS: Head: No hyperdense hemorrhage or space-occupying mass. No hydrocephalus or midline shift. No evidence of territorial infarct. Basilar cisterns are patent. Mild global atrophy. No focal scalp swelling. No skull fracture. The paranasal sinuses and mastoid air cells are clear. Cervical spine: No acute fracture or traumatic malalignment. 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 No high-grade spinal canal stenosis. Calcification of bilateral carotid bulbs. Airway is patent. No cervical lymphadenopathy. Visualized thyroid is normal. IMPRESSION: 1. No acute intracranial process or skull fracture. 2. No acute fracture or traumatic malalignment of the cervical spine. Dictated by: Dictated on workstation # [id number] Dict: 06/06/22 1620 Trans: 06/06/22 1623 [facility] [id number] Interpreted by: SHAVONNE WARREN MD Electronically signed by: SHAVONNE WARREN MD 06/06/22 1623 Reviewed: Reviewed by Me Critical Care Note Critical Care Total Time (minutes) 45 minutes Progress I spent at least 45 minutes of critical care time with the patient. Time excludes separately billable procedures. Time was spent obtaining history and information from patient and caregiver, ordering test and reviewing results, ordering interventions and reviewing response, discussion with consultants, documentation in the chart. The patient was at risk of cardiovascular collapse, seizures, organ failure and required my immediate direct intervention and monitoring to help stabilize his condition. Departure Impression Primary Impression: Alcoholic pancreatitis Qualified Codes: K85.20 - Alcohol induced acute pancreatitis without necrosis or infection Additional Impressions: Hyponatremia Hypokalemia Frequent falls Disposition: HOME, SELF-CARE Condition: Critical Departure-Patient Inst. Decision time for Depature: 18:12 Referrals: NO,LOCAL PHYSICIAN (PCP/Family) Primary Care Physician Patient Instructions: ALCOHOL AND SUBSTANCE ABUSE, High Potassium Diet, Hypokalemia (DC), Hyponatremia (DC), Pancreatitis (DC) Add. Discharge Instructions: He need to go directly to [facility] and be seen in the emergency department they will recheck you and talk with the attending so they can get you admitted to the hospital. Do not drink any more alcohol after you leave the emergency department. RIKY ANTONIO MD Jun 06, 2022 15:27
[2022-06-06] MEDS ORDERED: ONDANSETRON 4 MG/2 ML (SDV) Z0FRAN IVP STA (15:43)
[2022-06-06] MEDS ORDERED: PANTOPRAZOLE 40 MG (PROTONIX) VIAL IV STA (15:43)
[2022-06-06] MEDS ORDERED: NS IV 1000 ML 1,000 ML IV STA (15:43)
[2022-06-06 15:46] LABS: BASOPHILS # (AUTO) 0.1 10^3/uL (0.0-0.1); BASOPHILS % (AUTO) 1 % (0-10); EOSINOPHILS # (AUTO) 0.1 10^3/uL (0.0-0.3); EOSINOPHILS % (AUTO) 1 % (0-10); HEMATOCRIT 51 % (40-54); HEMOGLOBIN 18.8 g/dL (13.3-17.7); LYMPHOCYTES # (AUTO) 0.8 10^3/uL (1.0-4.0); LYMPHOCYTES % (AUTO) 7 % (12-44); MEAN CORPUSCULAR HEMOGLOBIN 32 pg (25-34); MEAN CORPUSCULAR HGB CONC 37 g/dL (32-36); MEAN CORPUSCULAR VOLUME 87 fL (80-99); MEAN PLATELET VOLUME 9.9 fL (9.0-12.2); MONOCYTES # (AUTO) 1.5 10^3/uL (0.0-1.0); MONOCYTES % (AUTO) 13 % (0-12); NEUTROPHILS # (AUTO) 9.1 10^3/uL (1.8-7.8); NEUTROPHILS % (AUTO) 78 % (42-75); PLATELET COUNT 484 10^3/uL (130-400); WHITE BLOOD COUNT 11.7 10^3/uL (4.3-11.0)
[2022-06-06 16:06] LABS: BUN/CREATININE RATIO 29; CALCIUM 9.5 MG/DL (8.5-10.1); CARBON DIOXIDE 29 MMOL/L (21-32); CHLORIDE 67 MMOL/L (98-107); CREATININE SERUM 1.39 MG/DL (0.60-1.30); GFR ESTIMATED 54; GLUCOSE 215 MG/DL (70-105); INR 0.9 (0.8-1.4)
[2022-06-06 16:07] LABS: ALANINE AMINOTRANSFERASE 65 U/L (0-55); ALBUMIN 4.7 GM/DL (3.2-4.5); ALKALINE PHOSPHATASE 98 U/L (40-136); BILIRUBIN,TOTAL 2.3 MG/DL (0.1-1.0); LIPASE 271 U/L (8-78); TOTAL PROTEIN 9.1 GM/DL (6.4-8.2)
[2022-06-06 16:08] LABS: POTASSIUM 2.5 MMOL/L (3.6-5.0); SODIUM 118 MMOL/L (135-145)
[2022-06-06 16:14] LABS: LYMPHOCYTES % (MANUAL) 11 %; MONOCYTES % (MANUAL) 16 %; NEUTROPHILS % (MANUAL) 73 %
--- NOTE | 2022-06-06 16:24 | Diagnostic Imaging Report ---
PROCEDURE: CT head and CT cervical spine without contrast. TECHNIQUE: Multiple contiguous axial images were obtained through the brain and cervical spine without the use of intravenous contrast. Sagittal and coronal reformations through the cervical spine were then performed. Auto Exposure Controls were utilized during the CT exam to meet ALARA standards for radiation dose reduction. INDICATION: Headache and neck pain COMPARISON: 10/24/2016 FINDINGS: Head: No hyperdense hemorrhage or space-occupying mass. No hydrocephalus or midline shift. No evidence of territorial infarct. Basilar cisterns are patent. Mild global atrophy. No focal scalp swelling. No skull fracture. The paranasal sinuses and mastoid air cells are clear. Cervical spine: No acute fracture or traumatic malalignment. 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 No high-grade spinal canal stenosis. Calcification of bilateral carotid bulbs. Airway is patent. No cervical lymphadenopathy. Visualized thyroid is normal. IMPRESSION: 1. No acute intracranial process or skull fracture. 2. No acute fracture or traumatic malalignment of the cervical spine. Dictated by: Dictated on workstation # [id number]
--- NOTE | 2022-06-06 16:33 | Diagnostic Imaging Report ---
EXAMINATION: Chest radiograph TECHNIQUE: AP upright view of the chest obtained. HISTORY: general weakness, cough, n/v COMPARISON: Chest radiograph 10/27/2016. FINDINGS: Normal lung volume. No airspace opacity. Cardiac silhouette and vascularity are within normal limits. No pleural effusion or pneumothorax. No acute osseous abnormality. IMPRESSION: No acute chest findings. Dictated by: Dictated on workstation # [id number]
--- NOTE | 2022-06-06 16:33 | Diagnostic Imaging Report ---
Pelvis/gonzalez hips 2 view TECHNIQUE: AP pelvis with frog-leg lateral views of each hip for a total of 3 views. COMPARISON: None available. INDICATION: Bilateral hip pain. FINDINGS: No acute fracture in the proximal femurs. 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 No displaced fracture within the obturator ring on either side. Hyperdensities overlying the sacral ala are most likely due to prior sacroplasty. Extensive arterial calcifications are present. IMPRESSION: No acute fracture about either hip. Dictated by: Dictated on workstation # [id number]
[2022-06-06] MEDS ORDERED: METOCLOPRAMIDE INJ 10 MG/2 ML (REGLAN) IVP STA (17:16)
[2022-06-06 18:09] LABS: BILIRUBIN,URINE NEGATIVE (NEGATIVE); CLARITY,URINE CLEAR; COLOR,URINE YELLOW; GLUCOSE, URINE (UA) NEGATIVE (NEGATIVE); KETONES,URINE 1+ (NEGATIVE); LEUKOCYTE ESTERASE ,URINE NEGATIVE (NEGATIVE); NITRITE,URINE NEGATIVE (NEGATIVE); PROTEIN,URINE TRACE (NEGATIVE)
[2022-06-06 18:12] LABS: BACTERIA,URINE FEW /HPF
[2022-06-06 18:20] LABS: AMPHETAMINE SCREEN, URINE NEGATIVE (NEGATIVE); BARBITURATE SCREEN URINE NEGATIVE (NEGATIVE); BENZODIAZEPINES SCREEN URINE NEGATIVE (NEGATIVE); CANNABINOID SCREEN, URINE NEGATIVE (NEGATIVE); COCAINE SCREEN URINE NEGATIVE (NEGATIVE); METHADONE STAT NEGATIVE (NEGATIVE); OPIATE SCREEN URINE NEGATIVE (NEGATIVE); OXYCODONE STAT NEGATIVE (NEGATIVE); PROPOXYPHENE STAT NEGATIVE (NEGATIVE); TRICYCLIC ANTIDEPRESSANTS SCRE NEGATIVE (NEGATIVE)
[2022-06-07] MEDS ORDERED: POTA-51 PO (11:18)
[2022-06-09] MEDS ORDERED: MAGN400T7 PO (10:02)
== END 2022-06-06 18:20 | disposition home or self-care (01) ==
LOC: EDUNIT# 15:09 → ER FS 15:12
DX: S00.03XA Contusion of scalp, initial encounter (principal); K85.20 Alcohol induced acute pancreatitis without necrosis or infection; E87.1 Hypo-osmolality and hyponatremia; E87.6 Hypokalemia; E87.8 Other disorders of electrolyte and fluid balance, not elsewhere classified; N28.9 Disorder of kidney and ureter, unspecified; E80.7 Disorder of bilirubin metabolism, unspecified; M25.552 Pain in left hip; M25.551 Pain in right hip; Z28.310 Unvaccinated for COVID-19; W18.30XA Fall on same level, unspecified, initial encounter
CPT/HCPCS: 36415; 70450; 71045; 72125; 73521; 80053; 80306; 80320; 81000; 83690; 83735; 83880; 84484; 85007; 85027; 85610; 85730; 87088; 93005; 93041

== ENCOUNTER 2022-06-06 20:41 | Inpatient (IN) | payer OTHER, MEDICARE ==
[~2022-06-06] VITALS: Ht 167.7 cm; Wt 52.6 kg
[2022-06-06] MEDS ORDERED: NS IV 1000 ML 1,000 ML IV SCH (21:15)
--- NOTE | 2022-06-06 21:55 | ED General ---
General Chief Complaint: Abdominal/GI Problems Stated Complaint: LOW SODIUM Source of Information: Patient Exam Limitations: No Limitations History of Present Illness Date Seen by Provider: Jun 06, 2022 Time Seen by Provider: 21:02 Initial Comments 71-year-old male presents to the ED with concerns of weakness, low energy, not eating, and multiple falls over the last 10 days. Patient drinks alcohol daily, approximately 8 beers a day. Patient was seen at the [place] [facility] today and found to have a critically low sodium and potassium, as well as acute kidney injury, and pancreatitis due to alcohol, among other abnormal labs. The workup at [place] also included imaging of patient's pelvis, head, c-spine, and c hest. No acute abnormalities noted on these images. The physician at [facility] wanted to directly admit him to the ICU here, but patient refused to come by ambulance. Patient was going to go to the [place] tomorrow, but family was able to get him to come here tonight. Patient reports he did drink about 2 beers after leaving the other ER before coming here. He denies fevers, chest pain, shortness of air, abdominal pain. Reports some vomiting and some diarrhea. Allergies and Home Medications Allergies Coded Allergies: No Known Drug Allergies (Unverified , 07/24/15) Patient Home Medication List Home Medication List Reviewed: Yes Magnesium Oxide (Magnesium Oxide) 400 Mg Tablet, 400 MG PO BID Prescribed by: CHERIE JAMESON on 06/09/22 1002 Potassium Chloride (Potassium Chloride) 20 Meq Tablet.er, 20 MEQ PO BID, (Reported) Entered as Reported by: BISMARK BARRY on 06/07/22 1118 Last Action: Reviewed Discontinued Medications Aspirin (Aspirin) 81 Mg Tab.chew, 81 MG PO DAILY Discontinued Reason: No Longer Taking Prescribed by: MONICA GOMEZ on 10/27/16 1125 Last Action: Discontinued Review of Systems Review of Systems Constitutional: see HPI Past Cwelubw-Zesjyp-Cajvet Hx Seasonal Allergies Seasonal Allergies: No Past Medical History Surgery/Hospitalization HX: Alcoholism Surgeries: No Respiratory: No Currently Using CPAP: No Currently Using BIPAP: No Cardiac: Yes Hypertension Neurological: No Reproductive Disorders: No Sexually Transmitted Disease: No Genitourinary: No Gastrointestinal: No Musculoskeletal: Yes Back Injury, Chronic Back Pain, Fractures, Spasms Endocrine: No HEENT: No Cataract Loss of Vision: Denies Hearing Impairment: Denies Cancer: No Psychosocial: No Integumentary: No Blood Disorders: No Adverse Reaction/Blood Tranf: No Family Medical History Arthritis G8 BROTHER Cataracts 19 FATHER 19 MOTHER Osteoporosis 19 MOTHER Respiratory disorder G8 BROTHER Physical Exam Vital Signs Vital Signs - First Documented 06/06/22 21:56 Temp 36.0 Pulse 102 Resp 14 B/P (MAP) 141/93 (109) Pulse Ox 97 O2 Delivery Room Air Capillary Refill : Height, Weight, BMI Height: 5'6.00" Weight: 126lbs. 8.0oz. 57.061368dl; 18.00 BMI Method:Stated General Appearance: No Apparent Distress, WD/WN Neck: Normal Inspection, Supple Respiratory: Lungs Clear, Normal Breath Sounds, No Accessory Muscle Use, No Respiratory Distress Cardiovascular: No Edema, No Gallop, No JVD, No Murmur, Irregularly Irregular Extremity: Normal Inspection, Normal Range of Motion Neurologic/Psychiatric: Alert, Oriented x3, Normal Mood/Affect Skin: Normal Color, Warm/Dry Progress/Results/Core Measures Suspected Sepsis SIRS Temperature: Pulse: Respiratory Rate: Blood Pressure / Mean: Laboratory Tests 06/06/22 21:52: INR Comment 1.0, Total Bilirubin 1.7H Results/Orders Lab Results Laboratory Tests Test 06/06/22 21:52 06/06/22 22:34 Range/Units White Blood Count 14.6 H 4.3-11.0 10^3/uL Red Blood Count 5.28 4.30-5.52 10^6/uL Hemoglobin 16.9 13.3-17.7 g/dL Hematocrit 46 40-54 % Mean Corpuscular Volume 87 80-99 fL Mean Corpuscular Hemoglobin 32 25-34 pg Mean Corpuscular Hemoglobin Concent 37 H 32-36 g/dL Red Cell Distribution Width 11.9 10.0-14.5 % Platelet Count 429 H 130-400 10^3/uL Mean Platelet Volume 9.9 9.0-12.2 fL Immature Granulocyte % (Auto) 1 % Neutrophils (%) (Auto) 77 H 42-75 % Lymphocytes (%) (Auto) 7 L 12-44 % Monocytes (%) (Auto) 14 H 0-12 % Eosinophils (%) (Auto) 1 0-10 % Basophils (%) (Auto) 0 0-10 % Neutrophils # (Auto) 11.2 H 1.8-7.8 10^3/uL Lymphocytes # (Auto) 1.0 1.0-4.0 10^3/uL Monocytes # (Auto) 2.0 H 0.0-1.0 10^3/uL Eosinophils # (Auto) 0.2 0.0-0.3 10^3/uL Basophils # (Auto) 0.0 0.0-0.1 10^3/uL Immature Granulocyte # (Auto) 0.1 0.0-0.1 10^3/uL Neutrophils % (Manual) 81 % Lymphocytes % (Manual) 5 % Monocytes % (Manual) 14 % Blood Morphology Comment NORMAL Prothrombin Time 14.1 12.2-14.7 SEC INR Comment 1.0 0.8-1.4 Activated Partial Thromboplast Time 25 24-35 SEC Sodium Level 119 *L 135-145 MMOL/L Potassium Level 2.2 *L 3.6-5.0 MMOL/L Chloride Level 77 #L 98-107 MMOL/L Carbon Dioxide Level 19 L 21-32 MMOL/L Anion Gap 23 H 5-14 MMOL/L Blood Urea Nitrogen 37 H 7-18 MG/DL Creatinine 1.34 H 0.60-1.30 MG/DL Estimat Glomerular Filtration Rate 56 BUN/Creatinine Ratio 28 Glucose Level 166 H 70-105 MG/DL Calcium Level 7.9 L 8.5-10.1 MG/DL Corrected Calcium 8.2 L 8.5-10.1 MG/DL Magnesium Level 2.5 H 1.6-2.4 MG/DL Total Bilirubin 1.7 H 0.1-1.0 MG/DL Aspartate Amino Transf (AST/SGOT) 42 H 5-34 U/L Alanine Aminotransferase (ALT/SGPT) 53 0-55 U/L Alkaline Phosphatase 66 40-136 U/L Ammonia 31 11-32 UMOL/L Total Protein 7.0 6.4-8.2 GM/DL Albumin 3.6 3.2-4.5 GM/DL Amylase Level 84 25-125 U/L Lipase 157 H 8-78 U/L Acetaminophen Level < 10 L 10-30 UG/ML Serum Alcohol 35 H <10 MG/DL Urine Color YELLOW Urine Clarity CLEAR Urine pH 6.0 5-9 Urine Specific [place] <=1.005 1.016-1.022 Urine Protein NEGATIVE NEGATIVE Urine Glucose (UA) NEGATIVE NEGATIVE Urine Ketones NEGATIVE NEGATIVE Urine Nitrite NEGATIVE NEGATIVE Urine Bilirubin NEGATIVE NEGATIVE Urine Urobilinogen 0.2 < = 1.0 MG/DL Urine Leukocyte Esterase NEGATIVE NEGATIVE Urine RBC (Auto) TRACE-I H NEGATIVE Urine RBC 0-2 /HPF Urine WBC NONE /HPF Urine Crystals NONE /LPF Urine Bacteria NEGATIVE /HPF Urine Casts NONE /LPF Urine Mucus NEGATIVE /LPF Urine Culture Indicated NO Urine Opiates Screen NEGATIVE NEGATIVE Urine Oxycodone Screen NEGATIVE NEGATIVE Urine Methadone Screen NEGATIVE NEGATIVE Urine Propoxyphene Screen NEGATIVE NEGATIVE Urine Barbiturates Screen NEGATIVE NEGATIVE Ur Tricyclic Antidepressants Screen NEGATIVE NEGATIVE Urine Phencyclidine Screen NEGATIVE NEGATIVE Urine Amphetamines Screen NEGATIVE NEGATIVE Urine Methamphetamines Screen NEGATIVE NEGATIVE Urine Benzodiazepines Screen NEGATIVE NEGATIVE Urine Cocaine Screen NEGATIVE NEGATIVE Urine Cannabinoids Screen NEGATIVE NEGATIVE My Orders Orders - ALTAGRACIA CROWE APRN Potassium Chloride (Tablet) (K Dur Table (06/06/22 22:45) Ed Admission (Communication) (06/06/22 22:58) Vital Signs/I&O 06/06/22 06/06/22 21:56 23:46 Temp 36.0 Pulse 102 105 Resp 14 21 B/P (MAP) 141/93 (109) 157/93 Pulse Ox 97 97 O2 Delivery Room Air Room Air Capillary Refill : Progress Note : Time: 21:50 Progress Note Patient seen and evaluated, resting comfortably, no acute distress. Does not appear to be detoxing at this time, although heart rate is slightly elevated, and blood pressure is elevated. Will obtain repeat labs, and consult Dr. Rosenthal for admission. Will not repeat any imaging that was done at [facility] [place]. 2242 labs reviewed. CBC shows WBC 1.6, platelets 429, neutrophils 77. CMP shows critically low sodium 119, critically low potassium 2.2, low chloride 77, low CO2 19, elevated anion gap 23, BUN elevated 37, creatinine elevated 1.34, GFR 56, magnesium 2.5, liapse 157, ammonia normal. Coags normal. UDS negative. Alcohol 35. UA shows trace RBCs. Dr. Rosenthal, hospitalist, called for admission. She agrees to admit. She would like me to place bridge orders including fluids and potassium replacement. ECG Initial ECG Impression Date: Jun 06, 2022 Initial ECG Impression Time: 21:15 Initial ECG Rate: 107 Initial ECG Rhythm: S.Tach, PVC Initial ECG Intervals: Normal Initial ECG Impression: Normal Comment Lots of artifact, difficult to read. No obvious Q waves, ST elevation, or T wave inversion Departure Communication (Admissions) Time/Spoke to Consulting Phy: 22:42 Dr. Rosenthal, hospitalist, consulted for admission. Impression Primary Impression: Alcoholic pancreatitis Additional Impressions: Hypokalemia Hyponatremia Acute kidney injury Disposition: ADMITTED INPATIENT Condition: Critical Admissions Decision to Admit Reason: Admit from ER (General) Decision to Admit/Date: Jun 06, 2022 Time/Decision to Admit Time: 22:42 Departure-Patient Inst. Referrals: NO,LOCAL PHYSICIAN (PCP/Family) Primary Care Physician Scripts Magnesium Oxide (Magnesium Oxide) 400 Mg Tablet 400 MG PO BID for 30 Days, #60 TAB Prov: CHERIE JAMESON MD 06/09/22 ALTAGRACIA CROWE APRN Jun 06, 2022 21:55
[2022-06-06 22:01] LABS: BASOPHILS % (AUTO) 0 % (0-10); EOSINOPHILS # (AUTO) 0.2 10^3/uL (0.0-0.3); EOSINOPHILS % (AUTO) 1 % (0-10); HEMATOCRIT 46 % (40-54); HEMOGLOBIN 16.9 g/dL (13.3-17.7); LYMPHOCYTES % (AUTO) 7 % (12-44); MEAN CORPUSCULAR HEMOGLOBIN 32 pg (25-34); MEAN CORPUSCULAR HGB CONC 37 g/dL (32-36); MEAN CORPUSCULAR VOLUME 87 fL (80-99); MEAN PLATELET VOLUME 9.9 fL (9.0-12.2); MONOCYTES % (AUTO) 14 % (0-12); NEUTROPHILS # (AUTO) 11.2 10^3/uL (1.8-7.8); NEUTROPHILS % (AUTO) 77 % (42-75); PLATELET COUNT 429 10^3/uL (130-400); WHITE BLOOD COUNT 14.6 10^3/uL (4.3-11.0)
[2022-06-06 22:13] LABS: ALBUMIN 3.6 GM/DL (3.2-4.5)
[2022-06-06 22:14] LABS: CALCIUM 7.9 MG/DL (8.5-10.1)
[2022-06-06 22:15] LABS: PROTHROMBIN TIME PATIENT 14.1 SEC (12.2-14.7)
[2022-06-06 22:16] LABS: LYMPHOCYTES % (MANUAL) 5 %; MONOCYTES % (MANUAL) 14 %; NEUTROPHILS % (MANUAL) 81 %; RBC MORPH NORMAL
[2022-06-06 22:17] LABS: BILIRUBIN,TOTAL 1.7 MG/DL (0.1-1.0)
[2022-06-06 22:19] LABS: CREATININE SERUM 1.34 MG/DL (0.60-1.30)
[2022-06-06 22:22] LABS: MAGNESIUM 2.5 MG/DL (1.6-2.4)
[2022-06-06 22:30] LABS: POTASSIUM 2.2 MMOL/L (3.6-5.0)
[2022-06-06 22:39] LABS: BILIRUBIN,URINE NEGATIVE (NEGATIVE); CLARITY,URINE CLEAR; COLOR,URINE YELLOW; GLUCOSE, URINE (UA) NEGATIVE (NEGATIVE); KETONES,URINE NEGATIVE (NEGATIVE); LEUKOCYTE ESTERASE ,URINE NEGATIVE (NEGATIVE); NITRITE,URINE NEGATIVE (NEGATIVE); PROTEIN,URINE NEGATIVE (NEGATIVE)
[2022-06-06] MEDS ORDERED: KCL 20 MEQ TAB (K-DUR) PO ONE (22:45)
[2022-06-06 22:47] LABS: BACTERIA,URINE NEGATIVE /HPF; RBC,URINE 0-2 /HPF
[2022-06-06 23:04] LABS: AMPHETAMINE SCREEN, URINE NEGATIVE (NEGATIVE); BARBITURATE SCREEN URINE NEGATIVE (NEGATIVE); BENZODIAZEPINES SCREEN URINE NEGATIVE (NEGATIVE); CANNABINOID SCREEN, URINE NEGATIVE (NEGATIVE); COCAINE SCREEN URINE NEGATIVE (NEGATIVE); METHADONE STAT NEGATIVE (NEGATIVE); OPIATE SCREEN URINE NEGATIVE (NEGATIVE); OXYCODONE STAT NEGATIVE (NEGATIVE); PROPOXYPHENE STAT NEGATIVE (NEGATIVE); TRICYCLIC ANTIDEPRESSANTS SCRE NEGATIVE (NEGATIVE)
[2022-06-07] MEDS ORDERED: NS IV 1000 ML 1,000 ML ONE (00:33)
[2022-06-07] MEDS ORDERED: POTASSIUM CL 10MEQ/50ML IVPB 200 ML IV ONE (00:33)
[2022-06-07] MEDS ORDERED: ONDANSETRON 4 MG/2 ML (SDV) Z0FRAN IV PRN (00:45)
[2022-06-07] MEDS ORDERED: fentaNYL INJ 100 MCG/2 ML AMP IV PRN (00:45)
[2022-06-07] MEDS ORDERED: SENNA W/DOCUSATE (SENOKOT S) TABLET PO PRN (00:45)
[2022-06-07] MEDS ORDERED: ANTACID SUSP 30 ML UDC (MYLANTA) PO PRN (00:45)
[2022-06-07] MEDS ORDERED: 1/2 NS IV SOLUTION 1,000 ML IV PRN (00:45)
[2022-06-07] MEDS ORDERED: ONDANSETRON 4 MG (ZOFRAN) ORAL DISSOLVE TAB SL PRN (00:45)
[2022-06-07] MEDS ORDERED: LORazepam 1 MG (ATIVAN) TAB PO PRN (00:45)
[2022-06-07] MEDS ORDERED: D5 1/2 NS 1000 ML IV SOLUTION 1,000 ML IV PRN (00:45)
[2022-06-07] MEDS ORDERED: LORazepam INJ 2 MG/ML (ATIVAN) VIAL IV PRN (00:45)
[2022-06-07] MEDS ORDERED: LORazepam INJ 2 MG/ML (ATIVAN) VIAL IM/IV PRN (00:45)
[2022-06-07] MEDS ORDERED: ACETAMINOPHEN 325 MG TABLET PO PRN (00:45)
[2022-06-07] MEDS: NS IV 1000 ML 1,000 ML IV SCH ×3 (00:50→23:12)
[2022-06-07] MEDS: POTASSIUM CL 10MEQ/50ML IVPB 50 ML IV SCH ×13 (00:50→13:57)
[2022-06-07] MEDS: THIAMINE 100 MG (VITAMIN B-1) TAB PO SCH (05:42)
[2022-06-07] MEDS: MULTIVIT W/MINERALS TAB (THERAGRAN M) PO SCH (05:42)
[2022-06-07 05:52] LABS: BASOPHILS % (AUTO) 0 % (0-10); EOSINOPHILS # (AUTO) 0.1 10^3/uL (0.0-0.3); EOSINOPHILS % (AUTO) 1 % (0-10); HEMOGLOBIN 15.5 g/dL (13.3-17.7); LYMPHOCYTES # (AUTO) 1.1 10^3/uL (1.0-4.0); LYMPHOCYTES % (AUTO) 9 % (12-44); MEAN CORPUSCULAR HEMOGLOBIN 33 pg (25-34); MEAN CORPUSCULAR VOLUME 88 fL (80-99); NEUTROPHILS # (AUTO) 8.4 10^3/uL (1.8-7.8)
[2022-06-07 06:00] LABS: HEMATOCRIT 42 % (40-54); MEAN CORPUSCULAR HGB CONC 37 g/dL (32-36); MEAN PLATELET VOLUME 9.8 fL (9.0-12.2); MONOCYTES % (AUTO) 17 % (0-12); PLATELET COUNT 366 10^3/uL (130-400); WHITE BLOOD COUNT 11.6 10^3/uL (4.3-11.0)
[2022-06-07 06:02] LABS: NEUTROPHILS % (AUTO) 72 % (42-75)
[2022-06-07 06:07] LABS: ALBUMIN 3.1 GM/DL (3.2-4.5)
[2022-06-07 06:09] LABS: CALCIUM 7.7 MG/DL (8.5-10.1)
[2022-06-07 06:10] LABS: TOTAL PROTEIN 6.4 GM/DL (6.4-8.2)
[2022-06-07 06:12] LABS: BILIRUBIN,TOTAL 1.9 MG/DL (0.1-1.0)
[2022-06-07 06:14] LABS: CREATININE SERUM 1.14 MG/DL (0.60-1.30)
[2022-06-07 06:16] LABS: MAGNESIUM 2.3 MG/DL (1.6-2.4)
[2022-06-07] MEDS: MAGNESIUM 1 GM/100 ML IVPB 100 ML IV SCH (06:23)
[2022-06-07] MEDS: KCL 20 MEQ TAB (K-DUR) PO SCH (06:23)
[2022-06-07] MEDS ORDERED: NS IV 500 ML 500 ML IV PRN (06:30)
[2022-06-07] MEDS ORDERED: POTASSIUM CL 10MEQ/50ML IVPB 400 ML IV ONE (06:35)
--- NOTE | 2022-06-07 07:54 | Tele-ICU Consult ---
History of Present Illness History of Present Illness Date Seen by Provider: Jun 07, 2022 Time Seen by Provider: 07:49 History of Present Illness eICU consult (Tele-ICU Physician , Progress Note ) Service provided via interactive audio and video telecommunications E-CARE system to a patient admitted to ICU bed in [facility]. Patient is seen today due to persistent need of ICU care Available chart/ vitals / labs / Images reviewed Video assessment done using teleICU camera, rest of exam as per RN 71 yo M with Hx of EtOH abuse admitted with low Na 119 and K 2.2, acute pancreatitis, now on CIWA-not showing signs of withdrawal, last EtOH was last night. protocol given IVF, electrolytes being replaced, lipase 157 Has chronic diarrhea, not c/o abd mary not tremulous, not hallucinating Allergies and Home Medications Allergies Coded Allergies: No Known Drug Allergies (Unverified , 07/24/15) Home Medications Potassium Chloride 20 Meq Tablet.er, 20 MEQ PO BID, (Reported) Past Medical/Social/Family Hx Patient Social History Tobacco Use?: No Smokeless Tobacco Frequency: Former User Use of E-Cig and/or Vaping dev: No Substance use?: Yes Alcohol Use?: Yes Alcohol type: Beer Alcohol Frequency: Daily Pt stated abuse/neglect: No Immunizations Up To Date Influenza Vaccine Up-to-Date: No; Not Current First/Initial COVID19 Vaccinat: X1 Tetanus Booster (TDap): Unknown Hepatitis A: No Hepatitis B: No TB Skin Test: None Date of Pneumonia Vaccine: Sep 22, 2014 Current Status Advance Directives: No Communicates: Verbally Primary Language: Spanish Preferred Spoken Language: Spanish Is interpretation needed?: No Implanted or Applied Medical D: Orthopedic hardware Review of Systems Constitutional: see HPI EENTM: see HPI Respiratory: see HPI Cardiovascular: see HPI Gastrointestinal: see HPI Genitourinary: see HPI Musculoskeletal: see HPI Skin: see HPI Psychiatric/Neurological: See HPI Focused Exam Height, Weight, BMI Height: 5'6.00" Weight: 126lbs. 8.0oz. 57.657101tu; 17.38 BMI Method:Stated Exam Exam Patient acknowledged, consented, and participated in this virtual visit which was conducted using real time audio/video Vital Signs Date Time Temp Pulse Resp B/P (MAP) Pulse Ox O2 Delivery O2 Flow Rate FiO2 06/07/22 06:00 101 16 126/77 (92) 95 Room Air 06/07/22 05:00 95 104/52 (72) 95 Room Air 06/07/22 04:00 97 31 101/74 (83) 97 Room Air 06/07/22 03:05 37.5 Room Air 06/07/22 03:05 96 Room Air 06/07/22 03:00 103 15 122/75 (91) 96 Room Air 06/07/22 02:00 112 27 127/75 (98) 96 Room Air 06/07/22 01:01 105 06/07/22 01:00 103 9 126/67 (82) 95 Room Air 06/07/22 00:45 103 34 127/67 (89) 97 Room Air 06/07/22 00:31 Room Air 06/07/22 00:30 106 21 145/83 (103) 97 Room Air 06/07/22 00:23 97 Room Air 06/07/22 00:20 36.0 102 97 21 06/07/22 00:15 105 171/100 (118) 95 Room Air 06/07/22 00:10 38.0 109 18 181/95 (123) 96 Room Air 06/07/22 00:08 106 06/06/22 23:46 105 21 157/93 97 Room Air 06/06/22 21:56 36.0 102 14 141/93 (109) 97 Room Air I & O 06/07/22 07:00 Intake Total 1425 ml Output Total 675 ml Balance 750 ml Height & Weight Height: 5'6.00" Weight: 126lbs. 8.0oz. 57.453244lm; 17.38 BMI Method:Stated General Appearance: No Apparent Distress, WD/WN Neck: Normal Inspection, Supple Respiratory: Lungs Clear, Normal Breath Sounds, No Accessory Muscle Use, No Respiratory Distress Cardiovascular: Regular Rate, Rhythm, No Edema, No Gallop, No JVD, No Murmur, Irregularly Irregular Capillary Refill: Less Than 3 Seconds Gastrointestinal: normal bowel sounds, soft Extremity: Normal Inspection, Normal Range of Motion Neurologic/Psychiatric: Alert, Oriented x3, Normal Mood/Affect Skin: Normal Color, Warm/Dry Results Lab Laboratory Tests 06/06/22 21:52 06/07/22 05:32 Assessment/Plan Assessment/Plan Probable beer potomania, will raise Na slowly, hypokalemia, being replaced Acute pancreatitis, will continue ot hydrate EtOH abuse, watch for withdrawal, IV Ativan ordered, along with thiamine, folic acid, MVI Critical Care: Critically Ill Patient Time spent with patient (mins): 25 BARRY RODRÍGUEZ MD Jun 07, 2022 07:54
[2022-06-07] MEDS: MAGNESIUM OXIDE (MAG-OX)400 MG TAB PO SCH ×2 (08:48→20:08)
[2022-06-07] MEDS: FOLIC ACID 1 MG TAB PO SCH (08:48)
[2022-06-07] MEDS ORDERED: POT PHOS/NA PHOS (K-PHOS NEUTRAL) PO NR (09:30)
--- NOTE | 2022-06-07 09:35 | Physical Therapy Evaluation ---
PT Evaluation-General Medical Diagnosis Admission Date Jun 06, 2022 at 23:56 Medical Diagnosis: hyponatremia/hypokalemia/acute kidney injury Onset Date: Jun 06, 2022 Therapy Diagnosis Therapy Diagnosis: generalized weakness/debility Height/Weight Height (Feet): 5 Height (Inches): 6.00 Weight (Pounds): 126 Weight (Ounces): 8.0 Precautions Precautions/Isolations: Seizure, Fall Prevention, Standard Precautions Referral Physician: Flex Reason for Referral: Evaluation/Treatment Medical History Pertinent Medical History: Alcoholism, HTN Current History ER secondary to weakness/low energy/not eating/multiple falls Social History Home: Apartment Current Living Status: Alone Prior Prior Level of Function SCALE: Activities may be completed with or without assistive devices. 2-Itdneosflt-ribouaz completes the activity by him/herself with no assistance from a helper. 5-Set-up or Clean-up Assistance-helper sets up or cleans up; patient completes activity. [place] assists only prior to or following the activity. 4-Supervision or Touching Assistance-helper provides verbal cues and/or touching/steadying and/or contact guard assistance as patient completes activity. Assistance may be provided throughout the activity or intermittently. 3-Partial/Moderate Assistance-helper does LESS THAN HALF the effort. [place] lifts, holds or supports trunk or limbs, but provides less than half the effort. 2-Substantial/Maximal Assistance-helper does MORE THAN HALF the effort. [place] lifts or holds trunk or limbs and provides more than half the effort. 0-Psuzwjmlz-vcqqmq does ALL the effort. Patient does none of the effort to complete the activity. Or, the assistance of 2 or more helpers is required for the patient to complete the activity. If activity was not attempted, code reason: 7-Patient Refused. 9-Not Applicable-not attempted and the patient did not perform the activity before the current illness, exacerbation or injury. 10-Not Attempted due to Environmental Limitations-(lack of equipment, weather restraints, etc.). 88-Not Attempted due to Medical Conditions or Safety Concerns. Bed Mobility: 6 Transfers (B,C,W/C): 6 Gait: 6 Stairs: 6 Indoor Mobility (Ambulation): Independent Stairs: Independent Prior Devices Use: None PT Evaluation-Current Subjective Patient agrees to PT. Objective Patient Orientation: Normal For Age Attachments: IV ROM/Strength ROM Lower Extremities bilateral LE WFL Strength Lower Extremities 4-/5 grossly bilateral LE all planes Integumentary/Posture Bowel Incontinence: No Bladder Incontinence: No Posture WFL Neuromuscular (Tone, Coordination, Reflexes) grossly intact Sensory Vision: Functional Hearing: Impaired Transfers Lying to Sitting/Side of Bed(Q: 4 Sit to Stand (QC): 4 Chair/Hhw-vf-Bjhze Xfer(QC): 4 Gait Mode of Locomotion: Walk Anticipated Mode of Locomotion: Walk Walk 10 feet (QC): 4 Distance: 10' Gait Assistive Device: FWW Comments/Gait Description functional gait sequence Balance Sitting Static: Normal Sitting Dynamic: Normal Standing Static: Good Standing Dynamic: Good Assessment/Needs Patient will benefit from skilled PT to address functional strength and mobility to improve current LOF to safely return to home at maximum LOF. Rehab Potential: Fair PT Hydrogen Plant Operator Goals Hydrogen Plant Operator Goals PT Hydrogen Plant Operator Goals Time Frame: Jun 19, 2022 Roll Left & Right (QC): 6 Sit to Lying (QC): 6 Lying-Sitting on Side/Bed(QC): 6 Sit to Stand (QC): 6 Chair/Ttg-vf-Grjns Xfer(QC): 6 Toilet Transfer (QC): 6 Walk 10 feet (QC): 6 Walk 50ft with 2 Turns (QC): 6 Walk 150 ft (QC): 6 PT Plan Problem List Problem List: Activity Tolerance, Functional Strength, Safety, Balance, Gait, Transfer, Bed Mobility Treatment/Plan Treatment Plan: Continue Plan of Care Treatment Plan: Bed Mobility, Education, Functional Activity Courtney, Functional Strength, Gait, Safety, Therapeutic Exercise, Transfers Treatment Duration: Jun 19, 2022 Frequency: 6 times per week Estimated Hrs Per Day: .25 hour per day Patient and/or Family Agrees t: Yes Time Time In: 854 Time Out: 905 DATE: Jun 07, 2022 Total Billed Treatment Time: 11 Total Billed Treatment 1 visit EVMod 11 min REJI KING PT Jun 07, 2022 09:35
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
[2022-06-07] MEDS ORDERED: POTA-51 PO (11:18)
--- NOTE | 2022-06-07 13:13 | ST Dysphagia Evaluation ---
Speech Evaluation-General Medical Diagnosis Hyponatremia/Hypokalemia/Acute Kidney Injury Onset Date: Jun 06, 2022 Therapy Diagnosis Therapy Diagnosis: Intact Oropharyngeal Swallow Function Precautions Precautions: Fall, Aspiration Precautions/Isolations: Aspiration, Fall Prevention, Standard Precautions Referral Referring Physician: Dr. Mccord Reason for Referral: Evaluation/Treatment Medical History Pertinent Medical History: Alcoholism, HTN Reviewed History: Yes Social History Current Living Status: Alone Speech PLF/Current-Dysphagia Prior Level of Function The patient stated he consumes a regular consistency diet with thin liquids at home. Per patient, the only item he experiences swallowing difficulty with is pills and "it's been going on since I was a child, I just can't swallow them." The patient denied s/s of suspected aspiration with P.O. intake or a recent diagnosis of pneumonia. Subjective The patient was seated upright in a recliner, drinking water via straw, upon arrival to his room by the clinician. The patient greeted the clinician appropriately and was agreeable to participation in the clinical bedside swallowing evaluation. The patient recently had a choking episode with a magnesium pill which resulted in emesis. Per patient, "I usually cut my pills in fourths." Cognitive Status Patient Orientation: Person, Place, Time, Situation Oral Motor Skills Dentition: Edentalous Denture Type: Full- Upper & Lower (The patient reports he has dentures at home, however, does not care for them and does not wear them frequently. ) Current Food Consistancy: Regular, Thin Liquids Ability to Follow Directions: Good Oral Expression Ability: No Impairment Voice Voice Phonatory-Based Quality: Normal Voice Pitch: Normal Voice Loudness: Normal Face Facial Symmetry: Symmetrical Oral-Facial Assessment Oral-Facial Dentition: Normal Labial Seal Description: Normal Lingual Protrusion: Normal Lingual ROM: Normal Lingual Strength: Normal Volitional Dry Swallow: Yes Voluntary Cough: Yes Can Clear Throat Volitionally: Yes Productive Cough: Yes Productive Throat Clear: Yes Dysphagia Evaluation Consistencies Presented: Regular, Thin Liquid, Pureed Prolonged mastication was present with the solid due to edentulous state, however, full bolus formation was achieved. Pharyngeal impairments were not present throughout the swallow study. The patient does not display s/s of suspected aspiration with thin liquids, puree or solid consistencies. The patient's vocal quality remained clear following each swallow. Dietary Recommendations: Regular Liquid Recommendations: Thin Recommendations: - Regular consistency diet with thin liquids, as tolerated. - Fully upright and alert for P.O. intake. - Small, single bite and sips. - Crush medication and place in puree for administration. - Monitor for s/s of suspected aspiration with P.O. intake. If demonstrated, contact speech pathology. The results and recommendations were provided to the patient and the patient's RN immediate following completion of the study. Dysphagia Evaluation Summary The patient displayed an intact oropharyngeal swallowing function. Speech Short Term Goals Short Term Goals Short Term Goals 1. The patient will display safe swallowing strategies with 80% accuracy and mild verbal cueing. Time Frame-STG: Three Days. Speech Long-Term Goals Plate Grinder Goals 1. The patient will tolerate the least restrictive diet consistency without s/s of suspected aspiration. Time Frame: Five Days. Speech-Plan Treatment Plan Speech Therapy Treatment Plan: Continue Plan of Care Treatment Duration: Jun 11, 2022 Frequency: 4 times per week Estimated Hrs Per Day: .25 hour per day Rehab Potential: Fair Pt/Family Agrees to Plan: Yes Safety Risks/Education Teaching Recipient: Patient Teaching Methods: Discussion Response to Teaching: Verbalize Understanding Education Topics Provided: Results, Recommendations, Safe Swallowing Precautions Time Speech Therapy Time In: 11:45 Speech Therapy Time Out: 12:05 DATE: Jun 07, 2022 Total Billed Time: 20 Billed Treatment Time 1, RAMIRO WEAVER [facility] ST Jun 07, 2022 13:13
[2022-06-07 17:11] LABS: POTASSIUM 3.4 MMOL/L (3.6-5.0)
[2022-06-07 17:13] LABS: CALCIUM 7.7 MG/DL (8.5-10.1)
[2022-06-07 17:17] LABS: CREATININE SERUM 0.96 MG/DL (0.60-1.30)
[2022-06-07] MEDS ORDERED: KCL 20 MEQ TAB (K-DUR) PO NR (17:45)
--- NOTE | 2022-06-07 20:27 | History & Physical-Hospitalist ---
History of Present Illness HPI/Chief Complaint Jonas Jones is a 71 year old male with alcohol dependence who presented with weakness. He reports having several falls at home recently. He denies loss of consciousness. He did not hit his head. He does not follow with a doctor and takes no medications regularly. He drinks several alcoholic drinks daily. He has not been eating and drinking very much. He denies chest pain. He denies shortness of breath. He denies abdominal pain, nausea, vomiting, and diarrhea. He used smokeless tobacco until one week ago when he quit. Source: patient Exam Limitations: no limitations Date Seen 06/07/22 Time Seen by a Provider: 09:10 Attending Physician No,Local Physician PCP Admitting Physician: Ainsley Rosenthal MD Attending Physician: Fozia Jameson MD Referring Physician Date of Admission Jun 06, 2022 at 23:56 Home Medications & Allergies Home Medications Reviewed patient Home Medication Reconciliation performed by pharmacy medication reconciliations pump technician and/or nursing. Patients Allergies have been reviewed. Allergies Allergies Coded Allergies No Known Drug Allergies (Unverified07/24/15) Past Oipdomm-Gbvfht-Jcguxl Hx Patient Social History Tobacco Use?: No Smokeless type used: Chew Smokeless Tobacco Frequency: Former User Use of E-Cig and/or Vaping dev: No Substance use?: Yes Alcohol Use?: Yes Alcohol type: Beer Alcohol Frequency: Daily Pt feels they are or have been: No Immunizations Up To Date First/Initial COVID19 Vaccinat: X1 Tetanus Booster (TDap): Unknown Hepatitis A: No Hepatitis B: No Date of Pneumonia Vaccine: Sep 22, 2014 Seasonal Allergies Seasonal Allergies: No Current Status Advance Directives: No Communicates: Verbally Primary Language: Mongolian Preferred Spoken Language: Mongolian Is interpretation needed?: No Implanted or Applied Medical D: Orthopedic hardware Past Medical History Currently Using CPAP: No Currently Using BIPAP: No Hypertension Sexually Transmitted Disease: No Back Injury, Chronic Back Pain, Fractures, Spasms Cataract Loss of Vision: Denies Hearing Impairment: Denies Blood Disorders: No Adverse Reaction/Blood Tranf: No Family Medical History Arthritis G8 BROTHER Cataracts 19 FATHER 19 MOTHER Osteoporosis 19 MOTHER Respiratory disorder G8 BROTHER Review of Systems Constitutional: weakness Respiratory: no symptoms reported Cardiovascular: no symptoms reported Gastrointestinal: no symptoms reported Physical Exam Physical Exam Vital Signs Vital Signs - First Documented 306/07/22 06/07/22 21:56 00:20 11:00 Temp 36.0 Pulse 102 Resp 14 B/P (MAP) 141/93 (109) Pulse Ox 97 O2 Delivery Room Air O2 Flow Rate 0.00 FiO2 21 Capillary Refill : Less Than 3 Seconds Height, Weight, BMI Height: 5'6.00" Weight: 126lbs. 8.0oz. [id number]; 17.38 BMI Method:Stated General Appearance: No Apparent Distress, Thin HEENT: PERRL/EOMI, Pharynx Normal Neck: Normal Inspection, Supple Respiratory: Lungs Clear, Normal Breath Sounds, No Respiratory Distress Cardiovascular: Regular Rate, Rhythm, No Edema, No Murmur Gastrointestinal: Normal Bowel Sounds, Non Tender, Soft Extremity: Normal Inspection, No Pedal Edema Neurologic/Psychiatric: Alert, Oriented x3, Normal Mood/Affect Skin: Normal Color, Warm/Dry Results Results/Procedures Labs Laboratory Tests 06/06/22 21:52 06/07/22 05:32 06/07/22 11:45 06/07/22 16:55 Patient resulted labs reviewed. Imaging: Reviewed Imaging Report Assessment/Plan Admission Diagnosis Hyponatremia Admission Status: Inpatient Order (span 2 midnights) Reason for Inpatient Admission: Electrolyte abnormalities Assessment and Plan Hyponatremia Hypokalemia Hypophosphatemia Acute kidney injury Sodium 118 on arrival, improved to 124 today Hold IV fluids Repeat sodium this afternoon Consistent with hypovolemic hyponatremia Monitor and correct electrolytes as needed TeleICU consulted Kidney function improving Alcohol dependence Elevated liver enzymes Elevated lipase [facility] protocol No abdominal pain, not acute pancreatitis Monitor Debility Recurrent falls Dysphagia Likely due to combination of alcohol use, hyponatremia, dehydration IV fluids PT/OT/ST IRU evaluation DVT prophylaxis: Lovenox Critical Care Critically Ill Patient Diagnosis/Problems Diagnosis/Problems (1) Hyponatremia Status: Acute (2) Hypokalemia Status: Acute (3) Acute kidney injury Status: Acute (4) Alcohol dependence Status: Chronic (5) Elevated lipase Status: Acute (6) Frequent falls Status: Acute (7) Debility Status: Acute FOZIA JAMESON MD Jun 07, 2022 20:27
[2022-06-07] MEDS: ENOXAPARIN INJECTION 30 MG/0.3 ML SYR SC SCH (21:15)
[2022-06-08 05:44] LABS: BASOPHILS % (AUTO) 0 % (0-10); EOSINOPHILS # (AUTO) 0.1 10^3/uL (0.0-0.3); EOSINOPHILS % (AUTO) 2 % (0-10); HEMATOCRIT 37 % (40-54); HEMOGLOBIN 13.3 g/dL (13.3-17.7); LYMPHOCYTES # (AUTO) 1.5 10^3/uL (1.0-4.0); LYMPHOCYTES % (AUTO) 19 % (12-44); MEAN CORPUSCULAR HEMOGLOBIN 32 pg (25-34); MEAN CORPUSCULAR HGB CONC 36 g/dL (32-36); MEAN CORPUSCULAR VOLUME 90 fL (80-99); MONOCYTES # (AUTO) 1.6 10^3/uL (0.0-1.0); MONOCYTES % (AUTO) 20 % (0-12); NEUTROPHILS # (AUTO) 4.7 10^3/uL (1.8-7.8); NEUTROPHILS % (AUTO) 59 % (42-75); PLATELET COUNT 315 10^3/uL (130-400); WHITE BLOOD COUNT 8.1 10^3/uL (4.3-11.0)
[2022-06-08 05:50] LABS: ALBUMIN 2.9 GM/DL (3.2-4.5)
[2022-06-08 05:51] LABS: CALCIUM 7.3 MG/DL (8.5-10.1)
[2022-06-08 05:52] LABS: TOTAL PROTEIN 5.5 GM/DL (6.4-8.2)
[2022-06-08 05:54] LABS: BILIRUBIN,TOTAL 1.5 MG/DL (0.1-1.0)
[2022-06-08 05:56] LABS: CREATININE SERUM 0.79 MG/DL (0.60-1.30)
[2022-06-08 05:59] LABS: MAGNESIUM 1.8 MG/DL (1.6-2.4)
[2022-06-08] MEDS ORDERED: NS IV 500 ML 500 ML IV PRN (06:00)
[2022-06-08] MEDS ORDERED: POTASSIUM CL 10MEQ/50ML IVPB 50 ML IV SCH ×2 (06:00→15:00)
[2022-06-08 06:04] LABS: PHOSPHORUS 0.9 MG/DL (2.3-4.7)
[2022-06-08] MEDS: MAGNESIUM 1 GM/100 ML IVPB 100 ML IV SCH ×3 (06:20→07:35)
[2022-06-08] MEDS: KCL 20 MEQ TAB (K-DUR) PO SCH (06:20)
[2022-06-08] MEDS: POTASSIUM CL 10MEQ/50ML IVPB 50 ML IV SCH ×9 (06:20→23:19)
[2022-06-08] MEDS: MULTIVIT W/MINERALS TAB (THERAGRAN M) PO SCH (06:21)
[2022-06-08] MEDS: THIAMINE 100 MG (VITAMIN B-1) TAB PO SCH (06:21)
[2022-06-08] MEDS ORDERED: POTASSIUM PHOSPHATE INJ 30 MM in NS (IVPB) 250 ML IV ONE ×3 (07:00→23:00)
[2022-06-08] MEDS: FOLIC ACID 1 MG TAB PO SCH (08:11)
[2022-06-08] MEDS: MAGNESIUM OXIDE (MAG-OX)400 MG TAB PO SCH ×2 (08:11→19:55)
[2022-06-08] MEDS: NS IV 1000 ML 1,000 ML IV SCH ×2 (08:12→18:24)
[2022-06-08] MEDS: SODIUM CHLORIDE 1 GM TABLET PO SCH ×2 (08:26→19:55)
--- NOTE | 2022-06-08 09:25 | Physical Therapy Daily Note ---
PT Daily Note-Current Subjective Patient more alert and oriented on this date. Agrees to PT. Pain Section J - Health Conditions 1. Rarely or not at all 2. Occasionally 3. Frequently 4. Almost constantly 8. Unable to answer Pain Effect on Sleep: 1 Pain Interference with Therapy: 1 Pain Interference w/Day-to-Day: 1 Mental Status Patient Orientation: Normal For Age Transfers SCALE: Activities may be completed with or without assistive devices. 1-Cznotsbarh-qmkdrkv completes the activity by him/herself with no assistance from a helper. 5-Set-up or Clean-up Assistance-helper sets up or cleans up; patient completes activity. [place] assists only prior to or following the activity. 4-Supervision or Touching Assistance-helper provides verbal cues and/or touching/steadying and/or contact guard assistance as patient completes ac tivity. Assistance may be provided throughout the activity or intermittently. 3-Partial/Moderate Assistance-helper does LESS THAN HALF the effort. [place] lifts, holds or supports trunk or limbs, but provides less than half the effort. 2-Substantial/Maximal Assistance-helper does MORE THAN HALF the effort. [place] lifts or holds trunk or limbs and provides more than half the effort. 5-Bpqelvngn-lmtaso does ALL the effort. Patient does none of the effort to complete the activity. Or, the assistance of 2 or more helpers is required for the patient to complete the activity. If activity was not attempted, code reason: 7-Patient Refused. 9-Not Applicable-not attempted and the patient did not perform the activity before the current illness, exacerbation or injury. 10-Not Attempted due to Environmental Limitations-(lack of equipment, weather restraints, etc.). 88-Not Attempted due to Medical Conditions or Safety Concerns. Lying to Sitting/Side of Bed(Q: 6 Sit to Stand (QC): 5 Chair/Jed-zc-Yaxwf Xfer(QC): 5 Toilet Transfer (QC): 5 Gait Training Distance: >400' Walk 10 feet (QC): 4 Walk 50 ft with 2 Turns(QC): 4 Walk 150 ft (QC): 4 Gait Assistive Device: FWW safe and functional with no deviation/SBA due to increase in distance Exercises Supine Ex: Ankle pumps, Quad Set, Heel Slides, Straight leg raise Supine Reps: 15 Seated Therapy Exercises: Long arc quads Seated Reps: 15 Assessment Patient up in recliner with needs met. Patient much improved on this date with demonstrating the ability to ambulate farther. PT to continue to increase activity as tolerated by patient. PT Nursing Home Goals Legal Officer Goals PT Legal Officer Goals Time Frame: Jun 19, 2022 Roll Left & Right (QC): 6 Sit to Lying (QC): 6 Lying-Sitting on Side/Bed(QC): 6 Sit to Stand (QC): 6 Chair/Jhq-ma-Jwcjk Xfer(QC): 6 Toilet Transfer (QC): 6 Walk 10 feet (QC): 6 Walk 50ft with 2 Turns (QC): 6 Walk 150 ft (QC): 6 PT Plan Treatment/Plan Treatment Plan: Continue Plan of Care Treatment Plan: Bed Mobility, Education, Functional Activity Courtney, Functional Strength, Gait, Safety, Therapeutic Exercise, Transfers Treatment Duration: Jun 19, 2022 Frequency: 6 times per week Estimated Hrs Per Day: .25 hour per day Patient and/or Family Agrees t: Yes Time Time In: 755 Time Out: 818 DATE: Jun 08, 2022 Total Billed Treatment Time: 23 Total Billed Treatment 1 visit EX 9 min FA 14 min REJI KING PT Jun 08, 2022 09:25
[2022-06-08 11:16] VITALS: BP 163/97
--- NOTE | 2022-06-08 11:17 | Tele-ICU Progress Note ---
Subjective Date Seen by a Provider: Jun 08, 2022 Time Seen by a Provider: 11:16 Subjective/Events-last exam (Tele-ICU Physician , Progress Note ) Service provided via interactive audio and video telecommunications E-CARE system to a patient admitted to ICU bed in [facility]. Patient is seen today due to persistent need of ICU care Available chart/ vitals / labs / Images reviewed Video assessment done using teleICU camera, rest of exam as per RN Discussed with RN Events overnight : Afebrile hemodynamically stable Respiratory - ra I/O =+ Drips: ns 125 Pressors- no Hospital course: (06/07) 71/M- From [facility]. Falls, etoh abuse, weakness/falls 10 days, -- N 119, K 2.2, Pancreatitis. (ref. ambulance from [facility] ER to [facility] went home, had x2 beers, then ER [facility] A/P Acute kidney injury - resolved Hyponatremia, Hypokalemia, Hypophosphatemia - replace , follow Alcohol dependence -CIWA to cont Elevated liver enzymes ( ? ETOH) Elevated lipase - not acute pancreatitis, Monitor Dysphagia - speech eval-ed , follow Lines : periph , (Central Line Necessity Reviewed) Singletary: void OG: Nutrition: Analgesia: Anxiety/ delirium VTE Prophylaxis: marty Stress Ulcer Prophylaxis: Plans in collaboration with bedside consultants and IM MDs. Discussed with RN to reach out if any questions or concerns Case and care daily discussed on multidisciplinary rounds ( RN, PharmD, Manufacturing Electrician , Respiratory Therapy, automobile body worker ) A total of 15 minutes of critical care time was devoted to this patient today, required to treat and/or prevent further deterioration of critical care condition ( as above ) . I am remotely monitoring this patient from another state. I am unable to do the bedside exam, and history/physical and pertinent information is taken from other notes in the computer and bedside staff. Sepsis Event Evaluation Height, Weight, BMI Height: 5'6.00" Weight: 126lbs. 8.0oz. 57.739846jh; 17.99 BMI Method:Stated Exam Exam Patient acknowledged, consented, and participated in this virtual visit which was conducted using real time audio/video Vital Signs Date Time Temp Pulse Resp B/P (MAP) Pulse Ox O2 Delivery O2 Flow Rate FiO2 06/08/22 10:00 87 11 122/75 (91) 95 Room Air 06/08/22 09:00 86 5 126/74 (91) 97 Room Air 06/08/22 08:21 36.3 06/08/22 08:00 88 19 147/92 (110) Room Air 06/08/22 07:55 Room Air 06/08/22 07:17 83 06/08/22 07:00 85 19 135/78 (97) Room Air 06/08/22 06:00 90 25 133/70 (91) 88 Room Air 06/08/22 05:00 82 20 124/72 (89) 96 Room Air 06/08/22 04:00 88 26 103/66 (78) 94 Room Air 06/08/22 03:50 96 Room Air 06/08/22 03:48 99 Room Air 06/08/22 03:00 93 20 138/79 (98) 96 Room Air 06/08/22 02:00 89 24 116/69 (85) 95 Room Air 06/08/22 01:00 89 06/08/22 01:00 89 19 111/74 (80) 95 Room Air 06/08/22 00:00 88 119/64 (82) 95 Room Air 06/08/22 00:00 36.8 96 Room Air 06/07/22 23:59 99 Room Air 06/07/22 23:00 92 13 128/70 (89) 96 Room Air 06/07/22 22:00 97 131/74 (93) 95 Room Air 06/07/22 21:00 90 22 106/66 (79) 95 Room Air 06/07/22 20:00 90 14 96 Room Air 06/07/22 20:00 36.4 97 Room Air 06/07/22 19:25 97 Room Air 06/07/22 19:00 90 12 151/81 (104) 96 Room Air 06/07/22 19:00 94 06/07/22 18:00 108 21 146/78 (100) 96 Room Air 06/07/22 17:00 98 20 134/77 (96) 96 Room Air 06/07/22 16:00 101 23 135/85 (102) 96 Room Air 06/07/22 16:00 36.7 06/07/22 15:51 98 Room Air 06/07/22 15:00 96 36 134/79 (97) 96 Room Air 06/07/22 14:00 101 20 139/78 (98) 95 Room Air 06/07/22 13:00 90 06/07/22 13:00 92 15 127/103 (111) 92 Room Air 06/07/22 12:00 98 Room Air 06/07/22 12:00 101 26 96 Room Air 06/07/22 11:58 36.2 I & O 06/08/22 07:00 Intake Total 2860 ml Output Total 700 ml Balance 2160 ml Height & Weight Height: 5'6.00" Weight: 126lbs. 8.0oz. 57.239646uf; 17.99 BMI Method:Stated General Appearance: No Apparent Distress, Thin HEENT: PERRL/EOMI, Pharynx Normal Neck: Normal Inspection, Supple Respiratory: Lungs Clear, Normal Breath Sounds, No Respiratory Distress Cardiovascular: Regular Rate, Rhythm, No Edema, No Murmur Capillary Refill: Less Than 3 Seconds Gastrointestinal: normal bowel sounds, soft Extremity: Normal Inspection, No Pedal Edema Neurologic/Psychiatric: Alert, Oriented x3, Normal Mood/Affect Skin: Normal Color, Warm/Dry Results Lab Laboratory Tests 06/06/22 21:52 06/07/22 05:32 06/07/22 11:45 06/07/22 16:55 06/08/22 04:50 06/08/22 04:52 Assessment/Plan Assessment/Plan 1 NEGRITA HAGEN MD Jun 08, 2022 11:17
--- NOTE | 2022-06-08 14:29 | Occupational Ther Daily Note ---
OT Current Status-Daily Note Subjective Agreeable to OT, pleasantly participates Mental Status/Objective Patient Orientation: Person, Place, Time Attachments: IV ADL-Treatment Therapy Code Descriptions/Definitions Functional [place] Measure: 0=Not Assessed/NA 4=Minimal Assistance 1=Total Assistance 5=Supervision or Setup 2=Maximal Assistance 6=Modified [place] 3=Moderate Assistance 7=Complete IndependenceSCALE: Activities may be completed with or without assistive devices. 3-Mhfngbqchq-fuatozp completes the activity by him/herself with no assistance f rom a helper. 5-Set-up or Clean-up Assistance-helper sets up or cleans up; patient completes activity. [place] assists only prior to or following the activity. 4-Supervision or Touching Assistance-helper provides verbal cues and/or touching/steadying and/or contact guard assistance as patient completes activity. Assistance may be provided throughout the activity or intermittently. 3-Partial/Moderate Assistance-helper does LESS THAN HALF the effort. [place] lifts, holds or supports trunk or limbs, but provides less than half the effort. 2-Substantial/Maximal Assistance-helper does MORE THAN HALF the effort. [place] lifts or holds trunk or limbs and provides more than half the effort. 8-Szdsrcpef-imedjw does ALL the effort. Patient does none of the effort to complete the activity. Or, the assistance of 2 or more helpers is required for the patient to complete the activity. If activity was not attempted, code reason: 7-Patient Refused. 9-Not Applicable-not attempted and the patient did not perform the activity before the current illness, exacerbation or injury. 10-Not Attempted due to Environmental Limitations-(lack of equipment, weather restraints, etc.). 88-Not Attempted due to Medical Conditions or Safety Concerns. Eating (QC): 6 Oral Hygiene (QC): 4 Shower/Bathe Self (QC): 7 Upper Body Dressing (QC): 5 Lower Body Dressing (QC): 4 On/Off Footwear: 4 Toileting Hygiene (QC): 4 Toilet Transfer (QC): 4 (slightly impulsive) Education OT Patient Education: Correct positioning, Exercise program, Modified ADL techniques, Reviewed precautions, Safety issues, Transfer techniques Teaching Recipient: Patient Teaching Methods: Demonstration, Discussion Response to Teaching: Reinforcement Needed OT Half-Way Goals Automotive Service Management Teacher Goals Time Frame: Jun 11, 2022 Eating (QC): 6 Oral Hygiene (QC): 5 Toileting Hygiene (QC): 5 Shower/Bathe Self (QC): 5 Upper Body Dressing (QC): 5 Lower Body Dressing (QC): 5 On/Off Footwear (QC): 5 Additional Goals: 1-Demonstrate ADL Tasks, 2-Verbalize Understanding, 3- ImproveStrength/Courtney 1=Demonstrate adherence to instructed precautions during ADL tasks. 2=Patient will verbalize/demonstrate understanding of assistive devices/m odifications for ADL. 3=Patient will improve strength/tolerance for activity to enable patient to perform ADL's. OT Education/Plan Problem List/Assessment Assessment: Decreased Activ Tolerance, Decreased Safety Aware, Impaired Cognition, Impaired Coordination, Impaired Funct Balance, Impaired Self-Care Skills Discharge Recommendations Plan/Recommendations: Continue POC Treatment Plan/Plan of Care Treatment,Training & Education: Yes Patient would benefit from OT for education, treatment and training to promote independence in ADL's, mobility, safety and/or upper extremity function for ADL's. Plan of Care: ADL Retraining, Functional Mobility, UE Funct Exercise/Act Treatment Duration: Jun 11, 2022 Frequency: 3 times per week (3-5 times a week) Estimated Hrs Per Day: .25 hour per day Agreement: Yes Rehab Potential: Fair Time Start Time: 13:45 Stop Time: 14:08 DATE: Jun 08, 2022 Total Time Billed (hr/min): 23 Billed Treatment Time EX 2 23 min UZMA BLANDON OT Jun 08, 2022 14:29
[2022-06-08 14:48] LABS: MAGNESIUM 2.2 MG/DL (1.6-2.4)
--- NOTE | 2022-06-08 14:55 | Progress Note - Hospitalist ---
Subjective HPI/CC On Admission Date Seen by Provider: Jun 08, 2022 Time Seen by Provider: 09:30 Jonas Jones is a 71 year old male with alcohol dependence who presented with weakness. He reports having several falls at home recently. He denies loss of consciousness. He did not hit his head. He does not follow with a doctor and takes no medications regularly. He drinks several alcoholic drinks daily. He has not been eating and drinking very much. He denies chest pain. He denies shortness of breath. He denies abdominal pain, nausea, vomiting, and diarrhea. He used smokeless tobacco until one week ago when he quit. Subjective/Events-last exam He is feeling well. He walked with therapy today. He denies pain. He has no complaints. Objective Exam Vital Signs Vital Signs Date Time Temp Pulse Resp B/P (MAP) Pulse Ox O2 Delivery O2 Flow Rate FiO2 06/08/22 11:16 36.5 85 20 163/97 (119) 96 Room Air 06/07/22 11:00 0.00 06/07/22 00:20 21 Capillary Refill : Less Than 3 Seconds General Appearance: No Apparent Distress, WD/WN Respiratory: Lungs Clear, No Respiratory Distress Cardiovascular: Regular Rate, Rhythm, No Murmur Gastrointestinal: Normal Bowel Sounds, Soft Extremity: Normal Inspection, No Pedal Edema Neurologic/Psychiatric: Alert, Normal Mood/Affect Skin: Normal Color, Warm/Dry Results/Procedures Lab Laboratory Tests 06/07/22 16:55 06/08/22 04:50 06/08/22 04:52 Patient resulted labs reviewed. Imaging: Reviewed Imaging Report Assessment/Plan Assessment and Plan Assess & Plan/Chief Complaint Hyponatremia Hypokalemia Hypophosphatemia Acute kidney injury Sodium 126 Consistent with hypovolemic hyponatremia IV fluids Monitor and correct electrolytes as needed Kidney function improving Transfer to medical floor Alcohol dependence Elevated liver enzymes Elevated lipase [facility] protocol, no significant withdrawal symptoms No abdominal pain, not acute pancreatitis Monitor Debility Recurrent falls Dysphagia ST cleared for general diet with thin liquids PT/OT Refused IRU DVT prophylaxis: Lovenox Diagnosis/Problems Diagnosis/Problems (1) Hyponatremia Status: Acute (2) Hypokalemia Status: Acute (3) Acute kidney injury Status: Acute (4) Alcohol dependence Status: Chronic (5) Elevated lipase Status: Acute (6) Frequent falls Status: Acute (7) Debility Status: Acute (8) Hypophosphatemia Status: Acute (9) Hypomagnesemia Status: Acute CHERIE JAMESON MD Jun 08, 2022 14:55
[2022-06-08 15:29] LABS: PHOSPHORUS < 0.7 MG/DL (2.3-4.7)
[2022-06-08 15:45] VITALS: BP 153/76
[2022-06-08 19:36] VITALS: BP 133/69
[2022-06-08] MEDS: ENOXAPARIN INJECTION 30 MG/0.3 ML SYR SC SCH (19:56)
[2022-06-08 23:20] VITALS: BP 146/78
[2022-06-09 03:51] VITALS: BP 143/83
[2022-06-09 05:41] LABS: BASOPHILS % (AUTO) 1 % (0-10); EOSINOPHILS # (AUTO) 0.2 10^3/uL (0.0-0.3); EOSINOPHILS % (AUTO) 3 % (0-10); HEMATOCRIT 35 % (40-54); HEMOGLOBIN 12.2 g/dL (13.3-17.7); LYMPHOCYTES # (AUTO) 1.6 10^3/uL (1.0-4.0); LYMPHOCYTES % (AUTO) 25 % (12-44); MEAN CORPUSCULAR HEMOGLOBIN 32 pg (25-34); MEAN CORPUSCULAR HGB CONC 35 g/dL (32-36); MEAN CORPUSCULAR VOLUME 91 fL (80-99); MEAN PLATELET VOLUME 9.7 fL (9.0-12.2); MONOCYTES # (AUTO) 1.5 10^3/uL (0.0-1.0); MONOCYTES % (AUTO) 23 % (0-12); NEUTROPHILS # (AUTO) 3.2 10^3/uL (1.8-7.8); NEUTROPHILS % (AUTO) 48 % (42-75); PLATELET COUNT 337 10^3/uL (130-400); WHITE BLOOD COUNT 6.6 10^3/uL (4.3-11.0)
[2022-06-09 06:05] LABS: CREATININE SERUM 0.7 MG/DL (0.60-1.30); MAGNESIUM 1.7 MG/DL (1.6-2.4); PHOSPHORUS 4.5 MG/DL (2.3-4.7); POTASSIUM 3.6 MMOL/L (3.6-5.0)
[2022-06-09] MEDS: POTASSIUM CL 10MEQ/50ML IVPB 50 ML IV SCH ×6 (06:16→10:50)
[2022-06-09] MEDS: KCL 20 MEQ TAB (K-DUR) PO SCH ×2 (06:17)
[2022-06-09] MEDS: MAGNESIUM 1 GM/100 ML IVPB 100 ML IV SCH ×6 (06:17→10:51)
[2022-06-09] MEDS: NS IV 1000 ML 1,000 ML IV SCH (06:41)
[2022-06-09] MEDS: MULTIVIT W/MINERALS TAB (THERAGRAN M) PO SCH (06:41)
[2022-06-09] MEDS: THIAMINE 100 MG (VITAMIN B-1) TAB PO SCH (06:41)
[2022-06-09] MEDS: FOLIC ACID 1 MG TAB PO SCH (08:14)
[2022-06-09] MEDS: MAGNESIUM OXIDE (MAG-OX)400 MG TAB PO SCH (08:14)
[2022-06-09] MEDS: SODIUM CHLORIDE 1 GM TABLET PO SCH (08:14)
[2022-06-09 08:38] VITALS: BP 121/71
[2022-06-09] MEDS ORDERED: MAGN400T7 PO (10:02)
--- NOTE | 2022-06-09 11:10 | Occupational Ther Daily Note ---
OT Current Status-Daily Note Subjective Agreeable to OT. requires encouragement to remain out of bed Mental Status/Objective Patient Orientation: Situation Attachments: IV ADL-Treatment Therapy Code Descriptions/Definitions Functional [place] Measure: 0=Not Assessed/NA 4=Minimal Assistance 1=Total Assistance 5=Supervision or Setup 2=Maximal Assistance 6=Modified [place] 3=Moderate Assistance 7=Complete IndependenceSCALE: Activities may be completed with or without assistive devices. 3-Lrvlhmuesm-gtkhbsu completes the activity by him/herself with no assistance from a helper. 5-Set-up or Clean-up Assistance-helper sets up or cleans up; patient completes activity. [place] assists only prior to or following the activity. 4-Supervision or Touching Assistance-helper provides verbal cues and/or touching/steadying and/or contact guard assistance as patient completes activity. Assistance may be provided throughout the activity or intermittently. 3-Partial/Moderate Assistance-helper does LESS THAN HALF the effort. [place] lifts, holds or supports trunk or limbs, but provides less than half the effort. 2-Substantial/Maximal Assistance-helper does MORE THAN HALF the effort. [place] lifts or holds trunk or limbs and provides more than half the effort. 0-Urwsqmune-dqivmj does ALL the effort. Patient does none of the effort to complete the activity. Or, the assistance of 2 or more helpers is required for the patient to complete the activity. If activity was not attempted, code reason: 7-Patient Refused. 9-Not Applicable-not attempted and the patient did not perform the activity before the current illness, exacerbation or injury. 10-Not Attempted due to Environmental Limitations-(lack of equipment, weather restraints, etc.). 88-Not Attempted due to Medical Conditions or Safety Concerns. Eating (QC): 6 Oral Hygiene (QC): 5 Shower/Bathe Self (QC): 7 (declilned) Upper Body Dressing (QC): 4 Lower Body Dressing (QC): 5 On/Off Footwear: 5 Toileting Hygiene (QC): 5 Toilet Transfer (QC): 5 Other Treatment Safety education, activity tolerance training to promote successful discharge to home Education OT Patient Education: Correct positioning, Exercise program, Modified ADL techniques, Progress toward Goal/Update tx plan, Purpose of tx/functional activities, Reviewed precautions, Rehab process, Safety issues, Transfer techniques Teaching Recipient: Patient Teaching Methods: Demonstration, Discussion Response to Teaching: Reinforcement Needed (video monitor in room) OT Accounts Payable Representative Goals Accounts Payable Representative Goals Time Frame: Jun 11, 2022 Eating (QC): 6 Oral Hygiene (QC): 5 Toileting Hygiene (QC): 5 Shower/Bathe Self (QC): 5 Upper Body Dressing (QC): 5 Lower Body Dressing (QC): 5 On/Off Footwear (QC): 5 Additional Goals: 1-Demonstrate ADL Tasks, 2-Verbalize Understanding, 3- ImproveStrength/Courtney 1=Demonstrate adherence to instructed precautions during ADL tasks. 2=Patient will verbalize/demonstrate understanding of assistive devices/modifications for ADL. 3=Patient will improve strength/tolerance for activity to enable patient to perform ADL's. OT Education/Plan Discharge Recommendations Plan/Recommendations: Continue POC Treatment Plan/Plan of Care Patient would benefit from OT for education, treatment and training to promote independence in ADL's, mobility, safety and/or upper extremity function for ADL's. Plan of Care: ADL Retraining, Functional Mobility, UE Funct Exercise/Act Treatment Duration: Jun 11, 2022 Frequency: 3 times per week (3-5 times a week) Estimated Hrs Per Day: .25 hour per day Agreement: Yes Rehab Potential: Fair Remains in recliner w/ all needs met Time Start Time: 10:37 Stop Time: 11:00 DATE: Jun 09, 2022 Total Time Billed (hr/min): 23 Billed Treatment Time ADL 1 FA 1 23 min UZMA BLANDON OT Jun 09, 2022 11:10
[2022-06-09 11:26] VITALS: BP 121/71
[2022-06-09 12:00] VITALS: BP 121/71
--- NOTE | 2022-06-09 13:26 | Speech Therapy Daily Note ---
Speech Daily Progress Note Subjective Date Seen by Provider: Jun 09, 2022 Time Seen by Provider: 12:05 The patient was lying in bed, awake and alert, upon entrance to his room by the clinician. The patient greeted the clinician appropriately and was agreeable to participation in the dysphagia treatment session. Objective The patient and clinician reviewed the patient's safe swallowing precautions and strategies, specifically options to swallow pills more efficiently. At this time, the patient stated he continues to be comfortable cutting pills into half and swallowing the pills with thin liquid. The clinician provided additional options which included crushing the medication or placing the medication whole in applesauce for administration. The patient denied concerns or difficulties with his current oropharyngeal swallowing function and denied s/s of suspected aspiration at this time. Assessment Assessment Current Status: Good Progress Treatment Plan Continue Plan of Care Speech Short Term Goals Short Term Goals Short Term Goals 1. The patient will display safe swallowing strategies with 80% accuracy and mild verbal cueing. Time Frame-STG: Three Days. Speech [facility] Goals [facility] Goals 1. The patient will tolerate the least restrictive diet consistency without s/s of suspected aspiration. Time Frame: Five Days. Speech-Plan Treatment Plan Speech Therapy Treatment Plan: Discontinue ST Treatment Duration: Jun 11, 2022 Frequency: 4 times per week Estimated Hrs Per Day: .25 hour per day Rehab Potential: Fair Pt/Family Agrees to Plan: Yes Safety Risks/Education Teaching Recipient: Patient Teaching Methods: Discussion Response to Teaching: Verbalize Understanding Education Topics Provided: Safe Swallowing Precautions Time Speech Therapy Time In: 12:05 Speech Therapy Time Out: 12:15 DATE: Jun 09, 2022 Total Billed Time: 10 Billed Treatment Time 1, RAVINDER HARRIS Jun 09, 2022 13:26
--- NOTE | 2022-06-09 16:15 | Discharge Summary ---
Discharge Summary Hospital Course Problems/Dx: (1) Hyponatremia Status: Acute (2) Hypokalemia Status: Acute (3) Acute kidney injury Status: Acute (4) Alcohol dependence Status: Chronic (5) Elevated lipase Status: Acute (6) Frequent falls Status: Acute (7) Debility Status: Acute (8) Hypophosphatemia Status: Acute (9) Hypomagnesemia Status: Acute Hospital Course Date of Admission: Jun 06, 2022 at 23:56 Admission Diagnosis : Hyponatremia Family Physician/Provider: SofíaLocal Physician Date of Discharge: 06/09/22 Discharge Diagnosis: Hyponatremia, JESSICA, alcohol dependence Hospital Course: Jonas Jones is a 71 year old male with alcohol dependence who was admitted with hyponatremia. He was admitted to the ICU and closely monitored. He was hypovolemic and was given IV fluids. His sodium corrected appropriately. He also had hypokalemia, hypomagnesemia, and hypophosphatemia. These were corrected as needed and improved. His JESSICA resolved with IV fluids. He was encouraged to disco ntinue alcohol use but does not plan to quit. He was continued on potassium and magnesium replacement. He should follow up with his PCP at the [facility]. He was discharged home in stable condition. Labs and Pending Lab Test: Laboratory Tests 06/09/22 05:30: White Blood Count 6.6, Red Blood Count 3.79L, Hemoglobin 12.2L, Hematocrit 35L, Mean Corpuscular Volume 91, Mean Corpuscular Hemoglobin 32, Mean Corpuscular Hemoglobin Concent 35, Red Cell Distribution Width 12.0, Platelet Count 337, Mean Platelet Volume 9.7, Immature Granulocyte % (Auto) 1, Neutrophils (%) (Auto) 48, Lymphocytes (%) (Auto) 25, Monocytes (%) (Auto) 23H, Eosinophils (%) (Auto) 3, Basophils (%) (Auto) 1, Neutrophils # (Auto) 3.2, Lymphocytes # (Auto) 1.6, Monocytes # (Auto) 1.5H, Eosinophils # (Auto) 0.2, Basophils # (Auto) 0.0, Immature Granulocyte # (Auto) 0.1, Sodium Level 133L, Potassium Level 3.6, Chloride Level 97L, Carbon Dioxide Level 24, Anion Gap 12, Blood Urea Nitrogen 8 , Creatinine 0.70, Estimat Glomerular Filtration Rate 97, BUN/Creatinine Ratio 11, Glucose Level 100, Calcium Level 7.0L, Phosphorus Level 4.5, Magnesium Level 1.7 Microbiology 06/07/22 MRSA Screen - Final, Complete MRSA not isolated Home Meds Active Magnesium Oxide 400 Mg Tablet 400 Mg PO BID 30 Days Reported Potassium Chloride 20 Meq Tablet.er 20 Meq PO BID Assessment/Pt Instructions See instructions Discharge Planning: >30 minutes discharge planning Discharge Instructions Discharge Diet: No Restrictions Activity as Tolerated: Yes Discharge Physical Examination Vital Signs Vital Signs Date Time Temp Pulse Resp B/P (MAP) Pulse Ox O2 Delivery O2 Flow Rate FiO2 06/09/22 12:00 37.0 77 18 121/71 (88) 96 Room Air 06/09/22 11:26 0.00 06/07/22 00:20 21 General Appearance: No Apparent Distress, WD/WN Respiratory: Lungs Clear, No Respiratory Distress Cardiovascular: Regular Rate, Rhythm, No Murmur Gastrointestinal: Normal Bowel Sounds, Soft Extremity: Normal Inspection, No Pedal Edema Neurologic/Psychiatric: Alert, Normal Mood/Affect Allergies: Coded Allergies: No Known Drug Allergies (Unverified , 07/24/15) Discharge Summary Date of Admission Jun 06, 2022 at 23:56 Date of Discharge Jun 09, 2022 at 13:48 Discharge Date: Jun 09, 2022 Discharge Time: 13:48 Admission Diagnosis Hyponatremia Discharge Diagnosis Hyponatremia Hypokalemia Hypophosphatemia Acute kidney injury Alcohol dependence Elevated liver enzymes Elevated lipase Debility Recurrent falls (1) Hyponatremia Status: Acute (2) Hypokalemia Status: Acute (3) Acute kidney injury Status: Acute (4) Alcohol dependence Status: Chronic (5) Elevated lipase Status: Acute (6) Frequent falls Status: Acute (7) Debility Status: Acute (8) Hypophosphatemia Status: Acute (9) Hypomagnesemia Status: Acute CHERIE JAMESON MD Jun 09, 2022 16:15
== END 2022-06-09 13:48 | disposition home or self-care (01) | DRG 640 ==
LOC: EDUNIT# 20:41 → ER 20:42 → ICU 23:56 → 4TH 06-08 11:03
PROVIDERS: ADMIT Family Medicine; ATTEND Internal Medicine
DX: E87.1 Hypo-osmolality and hyponatremia (principal); K85.20 Alcohol induced acute pancreatitis without necrosis or infection; N17.9 Acute kidney failure, unspecified; E87.6 Hypokalemia; F10.20 Alcohol dependence, uncomplicated; Y90.1 Blood alcohol level of 20-39 mg/100 ml; E83.39 Other disorders of phosphorus metabolism; R53.81 Other malaise; E83.42 Hypomagnesemia; Z79.82 Long term (current) use of aspirin; Z79.899 Other long term (current) drug therapy; I10 Essential (primary) hypertension; G89.29 Other chronic pain; M54.9 Dorsalgia, unspecified; Z87.891 Personal history of nicotine dependence; R13.10 Dysphagia, unspecified
CPT/HCPCS: 36415; 80048; 80053; 80306; 80320; 80329; 81000; 82140; 82150; 83690; 83735; 84100; 84295; 84443; 85007; 85025; 85027; 85610; 85730; 87081; 93005; 93041